=== PATIENT | female | born 1960 | race Caucasian/White ===

== ENCOUNTER 2022-04-14 11:53 | Emergency (ER) | payer OTHER ==
--- OUTSIDE RECORDS SUMMARY | 2022-04-14 12:02 | XMS REPORT | Continuity of Care Document ---
:1960 Author Organization [facility] t Address [address] [place] [place] [address] Care Team Providers Name Role Phone Brandi Richards Primary Care Physician [phone] RADIOLOGY Attending Clinician Unavailable Payers Payer Name Policy Type Policy Number Effective Date Expiration Date Susu GARG O [id number] 2011 00:00:00 Problems This patient has no known problems. Allergies, Adverse Reactions, Alerts Allergy Allergy Status Severity Reaction(s) Onset Inactive Treating Comm ents Source Name Type Date Date Clinician Codeine Propensi Active 2021-06 Phosphat ty to 0-06 e adverse 00:00: reaction 00 to drug phetenol Propensi Active (Not ty to 3-16 Checked) adverse 00:00: reaction 00 to drug SHELLFIS DRUG Active High Anaphylaxis Uni vers H INGREDI 8-17 ity of DERIVED 00:00: [place] [facility] Sulfa Propensi Active (Sulfona ty to 1-30 mide adverse 00:00: Antibiot reaction 00 ics) to drug CODEINE DRUG Active Unknown-Cmnt 2014-06 Uni vers INGREDI 0-14 ity of 00:00: [place] [facility] PENICILL Drug Active Unknown-Cmnt 2014-06 Un petty INS Class 0-14 ity of 00:00: [place] [facility] SULFA Drug Active Unknown-Cmnt 2014-06 Univ ers (SULFONA Class 0-14 ity of MIDE 00:00: [place] ANTIBIOT 00 [facility] ICS) [facility] Medications Ordered Filled Start Stop Current Ordering Indication Dosage Frequency Signature Comments Components Source Medication Medication Date Date Medication? Clinician (SIG) Name Name Prozac 10 No 1mg mg capsule 12-23 00:00: 00 Prozac 10 2022-0 No 1mg mg capsule 7-21 00:00: 00 Prozac 10 2022-0 No 1mg mg capsule 7-21 00:00: 00 Dose 2022-0 No Unknown 3-19 00:00: 00 Dose 2022-0 No Unknown 3-19 00:00: 00 Dose 2022-0 No Unknown 3-19 00:00: 00 gemfibrozil 2022-0 No 1mg 600 mg 3-17 tablet 00:00: 00 Dose 2022-0 No Unknown 3-17 00:00: 00 gemfibrozil 2022-0 No 1mg 600 mg 3-17 tablet 00:00: 00 Dose 2022-0 No Unknown 3-17 00:00: 00 gemfibrozil 2022-0 No 1mg 600 mg 3-17 tablet 00:00: 00 Dose 2022-0 No Unknown 3-17 00:00: 00 Prozac 10 2022-0 No 1mg mg capsule 3-16 00:00: 00 Dose 2022-0 No Unknown 3-16 00:00: 00 Dose 2022-0 No Unknown 3-16 00:00: 00 Prozac 10 2022-0 No 1mg mg capsule 3-16 00:00: 00 Dose 2022-0 No Unknown 3-16 00:00: 00 Dose 2022-0 No Unknown 3-16 00:00: 00 Dose 2022-0 No Unknown 3-16 00:00: 00 Dose 2022-0 No Unknown 3-16 00:00: 00 Dose 2022-0 No Unknown 3-16 00:00: 00 Dose 2022-0 No Unknown 3-16 00:00: 00 Dose 2022-0 No Unknown 3-16 00:00: 00 Dose 2022-0 No Unknown 3-16 00:00: 00 Dose 2022-0 No Unknown 3-16 00:00: 00 Dose 2022-0 No Unknown 3-16 00:00: 00 Dose 2022-0 No Unknown 3-16 00:00: 00 Dose 2022-0 No Unknown 3-16 00:00: 00 Dose 2022-0 No Unknown 3-16 00:00: 00 Dose 2022-0 No Unknown 3-16 00:00: 00 Dose 2022-0 No Unknown 3-16 00:00: 00 Dose 2022-0 No Unknown 3-16 00:00: 00 Dose 2022-0 No Unknown 3-16 00:00: 00 Dose 2022-0 No Unknown 3-16 00:00: 00 Dose 2022-0 No Unknown 3-16 00:00: 00 Dose 2022-0 No Unknown 3-16 00:00: 00 Dose 2022-0 No Unknown 3-16 00:00: 00 Dose 2022-0 No Unknown 3-16 00:00: 00 Dose 2022-0 No Unknown 3-16 00:00: 00 Dose 2022-0 No Unknown 3-16 00:00: 00 Dose 2022-0 No Unknown 3-16 00:00: 00 Dose 2022-0 No Unknown 3-16 00:00: 00 Dose 2022-0 No Unknown 3-16 00:00: 00 Dose 2022-0 No Unknown 3-16 00:00: 00 Dose 2022-0 No Unknown 3-16 00:00: 00 Dose 2022-0 No Unknown 3-16 00:00: 00 Dose 2022-0 No Unknown 3-16 00:00: 00 Dose 2022-0 No Unknown 3-16 00:00: 00 Dose 2022-0 No Unknown 3-16 00:00: 00 Dose 2022-0 No Unknown 3-16 00:00: 00 Dose 2022-0 No Unknown 3-16 00:00: 00 Dose 2022-0 No Unknown 3-16 00:00: 00 Dose 2022-0 No Unknown 3-16 00:00: 00 Dose 2022-0 No Unknown 3-16 00:00: 00 Dose 2022-0 No Unknown 3-16 00:00: 00 Dose 2022-0 No Unknown 3-16 00:00: 00 Dose 2022-0 No Unknown 3-16 00:00: 00 Dose 2022-0 No Unknown 3-16 00:00: 00 Dose 2022-0 No Unknown 3-16 00:00: 00 Dose 2022-0 No Unknown 3-16 00:00: 00 Dose 2022-0 No Unknown 3-16 00:00: 00 Dose 2022-0 No Unknown 3-16 00:00: 00 Dose 2022-0 No Unknown 3-16 00:00: 00 Dose 2022-0 No Unknown 3-16 00:00: 00 Dose 2022-0 No Unknown 3-16 00:00: 00 Dose 2022-0 No Unknown 3-16 00:00: 00 Dose 2022-0 No Unknown 3-16 00:00: 00 Dose 2022-0 No Unknown 3-16 00:00: 00 Prozac 10 2022-0 No 1mg mg capsule 3-16 00:00: 00 Dose 2022-0 No Unknown 3-16 00:00: 00 Dose 2022-0 No Unknown 3-16 00:00: 00 Dose 2022-0 No Unknown 3-16 00:00: 00 Dose 2022-0 No Unknown 3-16 00:00: 00 Dose 2022-0 No Unknown 3-16 00:00: 00 Dose 2022-0 No Unknown 3-16 00:00: 00 Dose 2022-0 No Unknown 3-16 00:00: 00 Dose 2022-0 No Unknown 3-16 00:00: 00 Dose 2022-0 No Unknown 3-16 00:00: 00 Dose 2022-0 No Unknown 3-16 00:00: 00 Dose 2022-0 No Unknown 3-16 00:00: 00 Dose 2022-0 No Unknown 3-16 00:00: 00 Dose 2022-0 No Unknown 3-16 00:00: 00 Dose 2022-0 No Unknown 3-16 00:00: 00 Dose 2022-0 No Unknown 3-16 00:00: 00 Dose 2022-0 No Unknown 3-16 00:00: 00 Dose 2022-0 No Unknown 3-16 00:00: 00 Dose 2022-0 No Unknown 3-16 00:00: 00 Dose 2022-0 No Unknown 3-16 00:00: 00 Dose 2022-0 No Unknown 3-16 00:00: 00 Dose 2022-0 No Unknown 3-16 00:00: 00 Dose 2022-0 No Unknown 3-16 00:00: 00 Dose 2022-0 No Unknown 3-16 00:00: 00 Dose 2022-0 No Unknown 3-16 00:00: 00 Dose 2022-0 No Unknown 3-16 00:00: 00 Dose 2022-0 No Unknown 3-16 00:00: 00 Dose 2022-0 No Unknown 3-16 00:00: 00 Dose 2022-0 No Unknown 3-16 00:00: 00 Dose 2022-0 No Unknown 3-16 00:00: 00 Dose 2022-0 No Unknown 3-16 00:00: 00 Dose 2022-0 No Unknown 3-16 00:00: 00 Dose 2022-0 No Unknown 3-16 00:00: 00 Dose 2022-0 No Unknown 3-16 00:00: 00 Dose 2022-0 No Unknown 3-16 00:00: 00 Dose 2022-0 No Unknown 3-16 00:00: 00 Dose 2022-0 No Unknown 3-16 00:00: 00 Dose 2022-0 No Unknown 3-16 00:00: 00 Dose 2022-0 No Unknown 3-16 00:00: 00 Dose 2022-0 No Unknown 3-16 00:00: 00 Dose 2022-0 No Unknown 3-16 00:00: 00 Dose 2022-0 No Unknown 3-16 00:00: 00 Dose 2022-0 No Unknown 3-16 00:00: 00 Dose 2022-0 No Unknown 3-16 00:00: 00 Dose 2022-0 No Unknown 3-16 00:00: 00 Dose 2022-0 No Unknown 3-16 00:00: 00 Dose 2022-0 No Unknown 3-16 00:00: 00 Dose 2022-0 No Unknown 3-16 00:00: 00 Dose 2022-0 No Unknown 3-16 00:00: 00 Dose 2022-0 No Unknown 3-16 00:00: 00 Dose 2022-0 No Unknown 3-16 00:00: 00 Dose 2022-0 No Unknown 3-16 00:00: 00 Dose 2022-0 No Unknown 3-16 00:00: 00 Dose 2022-0 No Unknown 3-16 00:00: 00 Dose 2022-0 No Unknown 3-16 00:00: 00 azithromyci 2021-1 No 1mg n 250 mg 1-15 tablet 00:00: 00 benzonatate 2021-1 No 1mg 200 mg 1-15 capsule 00:00: 00 azithromyci 2021-1 No 1mg n 250 mg 1-15 tablet 00:00: 00 benzonatate 2021-1 No 1mg 200 mg 1-15 capsule 00:00: 00 azithromyci 2021-1 No 1mg n 250 mg 1-15 tablet 00:00: 00 benzonatate 2021-1 No 1mg 200 mg 1-15 capsule 00:00: 00 Bromfed DM 2020-1 No 10mg/5 2 mg-30 1-11 mL mg-10 mg/5 00:00: mL oral 00 syrup Bromfed DM 2020-1 No 10mg/5 2 mg-30 1-11 mL mg-10 mg/5 00:00: mL oral 00 syrup Bromfed DM 2020-1 No 10mg/5 2 mg-30 1-11 mL mg-10 mg/5 00:00: mL oral 00 syrup ofloxacin 2020-0 No 12% 0.3 % eye 8-17 drops 00:00: 00 polymyxin B 2020-0 No 11 sulfate 8-17 mg/mL 10,000 00:00: unit-trimet 00 hoprim 1 mg/mL eye drops ofloxacin 2020-0 No 12% 0.3 % eye 8-17 drops 00:00: 00 polymyxin B 1-0 No 11 sulfate 8-17 mg/mL 10,000 00:00: unit-trimet 00 hoprim 1 mg/mL eye drops ofloxacin 2020-0 No 12% 0.3 % eye 8-17 drops 00:00: 00 polymyxin B 1-0 No 11 sulfate 8-17 mg/mL 10,000 00:00: unit-trimet 00 hoprim 1 mg/mL eye drops Dose 2020-0 No Unknown 7-30 00:00: 00 Dose 1-0 No Unknown 7-30 00:00: 00 Dose 1-0 No Unknown 7-30 00:00: 00 Plavix 75 1-0 No 1mg mg tablet 6-21 00:00: 00 Dose 1-0 No Unknown 6-21 00:00: 00 Dose 1-0 No Unknown 6-21 00:00: 00 allopurinol 1-0 No 1mg 100 mg 4-20 tablet 00:00: 00 naproxen 1-0 No 1mg 250 mg 4-20 tablet 00:00: 00 Dose 1-0 No Unknown 4-20 00:00: 00 naproxen 1-0 No 1mg 250 mg 4-20 tablet 00:00: 00 Dose 1-0 No Unknown 4-20 00:00: 00 naproxen 1-0 No 1mg 250 mg 4-20 tablet 00:00: 00 lidocaine 4 2021-0 No 1% % topical 4-15 gel 00:00: 00 acyclovir 2021-0 No 1mg 800 mg 4-15 tablet 00:00: 00 lidocaine 4 2021-0 No 1% % topical 4-15 gel 00:00: 00 acyclovir 2021-0 No 1mg 800 mg 4-15 tablet 00:00: 00 lidocaine 4 1-0 No 1% % topical 4-15 gel 00:00: 00 acyclovir 2021-0 No 1mg 800 mg 4-15 tablet 00:00: 00 gemfibrozil 2021-0 No 1mg 600 mg 4-14 tablet 00:00: 00 gemfibrozil 2021-0 No 1mg 600 mg 4-14 tablet 00:00: 00 gemfibrozil 2021-0 No 1mg 600 mg 4-14 tablet 00:00: 00 loratadine 2020-0 No 1mg 10 mg 6-22 tablet 00:00: 00 loratadine 2020-0 No 1mg 10 mg 6-22 tablet 00:00: 00 loratadine 2020-0 No 1mg 10 mg 6-22 tablet 00:00: 00 Medrol 2016-0 No 1mg (Noel) 4 mg 1-30 tablets in 00:00: a dose pack 00 Medrol 2016-0 No 1mg (Noel) 4 mg 1-30 tablets in 00:00: a dose pack 00 Medrol 2016-0 No 1mg (Noel) 4 mg 1-30 tablets in 00:00: a dose pack 00 Immunizations Ordered Immunization Filled Immunization Date Status Commen ts Source Name Name zoster 2022-04-08 Completed 00:00:00 Moderna COVID-19 2021-05-14 Completed Vaccine 00:00:00 Moderna COVID-19 2021-05-14 Completed Vaccine 00:00:00 Moderna COVID-19 2021-05-14 Completed Vaccine 00:00:00 Moderna COVID-19 2020-06-27 Completed Vaccine 00:00:00 Moderna COVID-19 2020-06-27 Completed Vaccine 00:00:00 Moderna COVID-19 2020-06-27 Completed Vaccine 00:00:00 Moderna COVID-19 2020-06-01 Completed Vaccine 00:00:00 Moderna COVID-19 2020-06-01 Completed Vaccine 00:00:00 Moderna COVID-19 2020-06-01 Completed Vaccine 00:00:00 Vital Signs Vital Name Observation Time Observation Value Comments Source BP Systolic 2022-04-08 09:26:00 154 mm[Hg] BP Diastolic 2022-04-08 09:26:00 82 mm[Hg] Weight Measured 2022-04-08 09:26:00 164.20 pounds Height Measured 2022-04-08 09:26:00 68.00 inches Body Temperature 2022-04-08 09:26:00 98.20 degrees Heart Rate 2022-04-08 09:26:00 78.00 /min Respiratory Rate 2022-04-08 09:26:00 BP Systolic 2022-03-10 08:24:00 171 mm[Hg] BP Diastolic 2022-03-10 08:24:00 78 mm[Hg] Weight Measured 2022-03-10 08:24:00 163.40 pounds Height Measured 2022-03-10 08:24:00 68.00 inches Body Temperature 2022-03-10 08:24:00 97.60 degrees Heart Rate 2022-03-10 08:24:00 89.00 /min Respiratory Rate 2022-03-10 08:24:00 BP Systolic 2022-03-10 08:08:00 171 mm[Hg] BP Diastolic 2022-03-10 08:08:00 78 mm[Hg] Weight Measured 2022-03-10 08:08:00 163.40 pounds Height Measured 2022-03-10 08:08:00 68.00 inches Body Temperature 2022-03-10 08:08:00 97.60 degrees Heart Rate 2022-03-10 08:08:00 89.00 /min Respiratory Rate 2022-03-10 08:08:00 BP Systolic 2022-01-28 11:13:00 153 mm[Hg] BP Diastolic 2022-01-28 11:13:00 67 mm[Hg] Weight Measured 2022-01-28 11:13:00 165.40 pounds Height Measured 2022-01-28 11:13:00 68.00 inches Body Temperature 2022-01-28 11:13:00 98.10 degrees Heart Rate 2022-01-28 11:13:00 87.00 /min Respiratory Rate 2022-01-28 11:13:00 16.00 /min BP Systolic 2021-08-18 09:49:00 118 mm[Hg] BP Diastolic 2021-08-18 09:49:00 70 mm[Hg] Weight Measured 2021-08-18 09:49:00 177.60 pounds Height Measured 2021-08-18 09:49:00 68.00 inches Body Temperature 2021-08-18 09:49:00 97.30 degrees Heart Rate 2021-08-18 09:49:00 84.00 /min Respiratory Rate 2021-08-18 09:49:00 BP Systolic 2021-01-01 08:12:00 123 mm[Hg] BP Diastolic 2021-01-01 08:12:00 66 mm[Hg] Weight Measured 2021-01-01 08:12:00 165.00 pounds Height Measured 2021-01-01 08:12:00 68.00 inches Body Temperature 2021-01-01 08:12:00 97.80 degrees Heart Rate 2021-01-01 08:12:00 78.00 /min Respiratory Rate 2021-01-01 08:12:00 16.00 /min BP Systolic 2020-12-04 14:26:00 142 mm[Hg] BP Diastolic 2020-12-04 14:26:00 74 mm[Hg] Weight Measured 2020-12-04 14:26:00 167.60 pounds Height Measured 2020-12-04 14:26:00 68.00 inches Body Temperature 2020-12-04 14:26:00 98.50 degrees Heart Rate 2020-12-04 14:26:00 82.00 /min Respiratory Rate 2020-12-04 14:26:00 BP Systolic 2020-11-23 16:34:00 159 mm[Hg] BP Diastolic 2020-11-23 16:34:00 76 mm[Hg] Weight Measured 2020-11-23 16:34:00 168.40 pounds Height Measured 2020-11-23 16:34:00 68.00 inches Body Temperature 2020-11-23 16:34:00 98.20 degrees Heart Rate 2020-11-23 16:34:00 86.00 /min Respiratory Rate 2020-11-23 16:34:00 BP Systolic 2020-09-17 09:30:00 138 mm[Hg] BP Diastolic 2020-09-17 09:30:00 80 mm[Hg] Weight Measured 2020-09-17 09:30:00 172.20 pounds Height Measured 2020-09-17 09:30:00 68.00 inches Body Temperature 2020-09-17 09:30:00 97.60 degrees Heart Rate 2020-09-17 09:30:00 89.00 /min Respiratory Rate 2020-09-17 09:30:00 16.00 /min BP Systolic 2020-09-11 09:14:00 161 mm[Hg] BP Diastolic 2020-09-11 09:14:00 77 mm[Hg] Weight Measured 2020-09-11 09:14:00 168.00 pounds Height Measured 2020-09-11 09:14:00 68.00 inches Body Temperature 2020-09-11 09:14:00 98.70 degrees Heart Rate 2020-09-11 09:14:00 83.00 /min Respiratory Rate 2020-09-11 09:14:00 16.00 /min BP Systolic 2019-06-21 09:58:00 171 mm[Hg] BP Diastolic 2019-06-21 09:58:00 79 mm[Hg] Weight Measured 2019-06-21 09:58:00 170.00 pounds Height Measured 2019-06-21 09:58:00 68.00 inches Body Temperature 2019-06-21 09:58:00 97.90 degrees Heart Rate 2019-06-21 09:58:00 76.00 /min Respiratory Rate 2019-06-21 09:58:00 BP Systolic 2015-07-04 12:05:00 140 mm[Hg] BP Diastolic 2015-07-04 12:05:00 72 mm[Hg] Weight Measured 2015-07-04 12:05:00 179.00 pounds Height Measured 2015-07-04 12:05:00 Body Temperature 2015-07-04 12:05:00 97.90 degrees Heart Rate 2015-07-04 12:05:00 106.00 /min Respiratory Rate 2015-07-04 12:05:00 15.00 /min BP Systolic 2015-07-04 12:00:00 140 mm[Hg] BP Diastolic 2015-07-04 12:00:00 72 mm[Hg] Weight Measured 2015-07-04 12:00:00 179.00 pounds Height Measured 2015-07-04 12:00:00 Body Temperature 2015-07-04 12:00:00 97.90 degrees Heart Rate 2015-07-04 12:00:00 106.00 /min Respiratory Rate 2015-07-04 12:00:00 15.00 /min Procedures This patient has no known procedures. Plan of Care Planned Activity Planned Date Details Comments Source Goal Plan of Care Note [code = 69331-8] Goal Plan of Care Note [code = 76843-9] Goal Plan of Care Note [code = 23410-5] Goal Plan of Care Note [code = 76450-0] Goal Plan of Care Note [code = 04273-1] Goal Plan of Care Note [code = 35172-1] Goal Plan of Care Note [code = 70179-9] Goal Plan of Care Note [code = 08428-7] Goal Plan of Care Note [code = 32511-6] Goal Plan of Care Note [code = 31819-6] Goal Plan of Care Note [code = 71781-3] Goal Plan of Care Note [code = 67464-9] Goal Plan of Care Note [code = 07939-3] Goal Plan of Care Note [code = 54468-2] Goal Plan of Care Note [code = 66218-7] Goal Plan of Care Note [code = 32505-5] Goal Plan of Care Note [code = 09352-9] Goal Plan of Care Note [code = 96073-5] Goal Plan of Care Note [code = 16199-0] Goal Plan of Care Note [code = 70472-7] Goal Plan of Care Note [code = 98434-9] Goal Plan of Care Note [code = 84722-3] Goal Plan of Care Note [code = 09773-0] Goal Plan of Care Note [code = 38646-7] Goal Plan of Care Note [code = 12326-4] Goal Plan of Care Note [code = 42146-3] Goal Plan of Care Note [code = 99698-6] Goal Plan of Care Note [code = 57469-0] Goal Plan of Care Note [code = 65822-8] Goal Plan of Care Note [code = 94429-9] Goal Plan of Care Note [code = 93419-2] Goal Plan of Care Note [code = 92545-7] Goal Plan of Care Note [code = 28475-9] Goal Plan of Care Note [code = 46437-9] Goal Plan of Care Note [code = 62774-4] Goal Plan of Care Note [code = 07512-3] Goal Plan of Care Note [code = 64510-9] Goal Plan of Care Note [code = 03387-6] Goal Plan of Care Note [code = 57176-9] Goal Plan of Care Note [code = 83921-9] Goal Plan of Care Note [code = 18976-4] Goal Plan of Care Note [code = 35838-9] Goal Plan of Care Note [code = 04523-4] Goal Plan of Care Note [code = 84266-7] Goal Plan of Care Note [code = 43231-4] Goal Plan of Care Note [code = 76258-9] Goal Plan of Care Note [code = 06142-0] Goal Plan of Care Note [code = 63355-8] Goal Plan of Care Note [code = 81667-3] Goal Plan of Care Note [code = 19814-4] Goal Plan of Care Note [code = 93252-0] Goal Plan of Care Note [code = 38686-9] Goal Plan of Care Note [code = 23916-6] Goal Plan of Care Note [code = 25825-5] Goal Plan of Care Note [code = 22315-9] Goal Plan of Care Note [code = 17373-5] Goal Plan of Care Note [code = 73812-4] Goal Plan of Care Note [code = 36877-6] Goal Plan of Care Note [code = 45985-2] Goal Plan of Care Note [code = 56259-5] Goal Plan of Care Note [code = 04009-9] Goal Plan of Care Note [code = 06907-6] Goal Plan of Care Note [code = 81372-1] Goal Plan of Care Note [code = 81286-7] Goal Plan of Care Note [code = 54655-6] Goal Plan of Care Note [code = 08433-1] Goal Plan of Care Note [code = 83134-2] Goal Plan of Care Note [code = 91061-1] Goal Plan of Care Note [code = 26914-5] Goal Plan of Care Note [code = 39627-3] Goal Plan of Care Note [code = 08476-6] Goal Plan of Care Note [code = 19947-1] Goal Plan of Care Note [code = 97375-2] Goal Plan of Care Note [code = 80289-9] Goal Plan of Care Note [code = 82956-0] Goal Plan of Care Note [code = 50450-4] Goal Plan of Care Note [code = 36522-6] Goal Plan of Care Note [code = 46624-6] Goal Plan of Care Note [code = 71745-0] Goal Plan of Care Note [code = 55006-8] Goal Plan of Care Note [code = 08699-8] Goal Plan of Care Note [code = 69538-6] Goal Plan of Care Note [code = 29205-1] Goal Plan of Care Note [code = 87501-2] Goal Plan of Care Note [code = 18186-5] Goal Plan of Care Note [code = 39289-7] Goal Plan of Care Note [code = 54049-8] Encounters Start End Encounter Admission Attending Care Care Encounter Source Date/Time Date/Time Type Type Clinicians Facility Department ID 2022-04-14 2022-04-14 Outpatient [facility] [id number] [facility] 10:07:39 10:07:39 1110 [facility] 2022-04-08 2022-04-08 Outpatient LOLA DAVILA [id number] [facility] 09:21:07 09:21:07 1104 F [facility] 2022-04-08 2022-04-08 Outpatient [id number] 00:00:00 00:00:00 Visit [id number]-1 -92bf-c35 [id number] 2022-03-10 2022-03-10 Outpatient [facility] [id number] [facility] 08:04:04 08:04:04 1006 F [facility] 2022-03-10 2022-03-10 Outpatient [id number] 00:00:00 00:00:00 Visit [id number]-[id number]-[id number] -8868-fc0 [id number] 2022-01-28 2022-01-28 Outpatient [id number] 00:00:00 00:00:00 Visit to46-4ma3 [id number] -5eu4-tpj cb6-aedcb5 [id number] 2020-09-17 2020-09-17 Outpatient R RADIOLOGY [facility] [id number]-20 [facility] 11:00:00 11:00:00 [id number] [facility] 2020-09-17 2020-09-17 Outpatient R RADIOLOGY [facility] [id number] [facility] 00:00:00 00:00:00 [facility] Results Test Description Test Time Test Comments Results Result Comments Source LIPID PANEL 2022-03-11 07:24:20 Test Item Value Reference Range Interpretation Comme nts CHOLESTEROL (test code = 2210) 263 MG/DL <200 H TRIGLYCERIDES (test code = 2232) 200 MG/DL <150 H HDL CHOLESTEROL (test code = 67 MG/DL >39 2219) CALC LDL CHOL (test code = 2237) 160 MG/DL <100 H NOTE: CALCULATED LDL IS BASED ON AMALIA-SALCIDO METHOD WHICHINCLUDES A DJUSTABLE TRIGLYCERIDE:VL DL CHOLESTEROL RATIO.THIS FACT OR VARIES BY MEASURED TRIGLY CERIDE AND NON-HDLCHOLESTE ROL CONCENTRATIONS WITH INCREASED CALCULATED LDL SEENIN HIGHER T RIGLYCERIDE OR LOWER NON-HDL S PECIMENS. FOR MOREINFORMATION , SEE CLIENT ANNOUNCEMENT AT [email or web address] RATIO LDL/HDL (test code = 2.39 RATIO <3.22 2237) COMPREHENSIVE METABOLIC [id number] 07:24:20 Test Item Value Reference Range Interpretation Comments GLUCOSE (test code = 127 MG/DL 70-99 H 2216) BUN (test code = 5 MG/DL 8-23 L 2207) CREATININE (test 0.58 MG/DL 0.60-1.30 L code = 2214) eGFR (2020 CKD-EPI) 101 >60 (test code = 62144) ML/MIN/1.73 CALC BUN/CREAT (test 9 RATIO 6-28 code = 223) SODIUM (test code = 146 MEQ/L 153-862 4910) POTASSIUM (test code 4.5 MEQ/L 3.5-5.4 = 2227) CHLORIDE (test code 107 MEQ/L 95-107 = 2214) CARBON DIOXIDE (test 27 MEQ/L 19-31 code = 220) CALCIUM (test code = 9.5 MG/DL 8.5-10.5 2208) PROTEIN, TOTAL (test 7.0 G/DL 6.1-8.3 code = 2228) ALBUMIN (test code = 4.6 G/DL 3.5-5.2 2200) CALC GLOBULIN (test 2.4 G/DL 1.9-3.7 code = 2239) CALC A/G RATIO (test 1.9 RATIO 1.0-2.6 code = 2233) BILIRUBIN, TOTAL 0.3 MG/DL See_Comment [Automated message] (test code = 2206) The [employer] which generated this result transmit patrick reference range : <=1.2. The refe rence range was not u sed to interpret th is result as normal/abnormal . ALKALINE PHOSPHATASE 87 U/L 40-140 (test code = 2203) AST (test code = 30 U/L 9-40 2217) ALT (test code = 39 U/L 5-40 2218) HEMOGLOBIN [id number] 04:10:16 Test Item Value Reference Range Interpretation Comments HEMOGLOBIN A1c (test code = 84682) 5.9 % 4.2-5.6 H VITAMIN D, 25 [id number] 04:00:07 Test Item Value Reference Range Interpretation Comments VITAMIN D, 25 OH 48 NG/ML SEE BELOW NOTE: 25-H YDROXYVITAMIN D (test code = 4958) ASSAY INC LUDES 25-HYDROXYVITAM IN D2 AND D3. METHODOLOGY IS CHEMILUMINESCEN T IMMUNOASSAY. INTERPRETIVE RA NGES PEDIATRIC (<17 YEARS) . . . . . . . . . . . NG/ML 20-100ADULT: IN SUFFICIENT . . . . . . . . . . . . . . NG/ML <20 SUBOP TIMAL . . . . . . . . . . . . . . . NG/ML 20-29 OPT IMAL . . . . . . . . . . . . . . . . . NG/ML 30-100 CBC W/AUTO DIFF WITH [id number] 03:16:40 Test Item Value Reference Range Interpretation Comments WBC (test code = 7.6 K/UL 3.5-11.0 1001) RBC (test code = 4.13 M/UL 3.80-5.40 1002) HEMOGLOBIN (test 13.6 G/DL 11.5-15.5 code = 1003) HEMATOCRIT (test 39.3 % 34.0-45.0 code = 1004) MCV (test code = 95.2 fL 80.0-99.0 1005) MCH (test code = 32.9 PG 25.0-33.0 1006) MCHC (test code = 34.6 G/DL 31.0-36.0 1007) RDW (test code = 13.1 % 11.5-15.0 1038) NEUTROPHILS (test 53.9 % code = 1008) LYMPHOCYTES (test 34.7 % code = 1010) MONOCYTES (test code 8.3 % = 1011) EOSINOPHILS (test 1.7 % code = 1012) BASOPHILS (test code 0.7 % = 1013) IMMATURE 0.7 % GRANULOCYTES (test code = 1036) NUCLEATED RBCS (test 0.0 /100 See_Comment [Autom ated message] code = 1065) WBC'S The system [employer] generated this result transmitted ref erence range: 0.0. The reference range was not used to int erpret this result as normal/abnormal . PLATELET COUNT (test 250 K/UL 130-400 code = 1015) ABSOLUTE NEUTROPHILS 4.08 K/UL 1.50-7.50 (test code = 1066) ABSOLUTE LYMPHOCYTES 2.62 K/UL 1.00-4.00 (test code = 1067) ABSOLUTE MONOCYTES 0.63 K/UL 0.20-1.00 (test code = 1068) ABSOLUTE EOSINOPHILS 0.13 K/UL 0.00-0.50 (test code = 1040) ABSOLUTE BASOPHILS 0.05 K/UL 0.00-0.20 (test code = 1069) ABS IMMATURE 0.05 K/UL 0.00-0.10 GRANULOCYTES (test code = 1020) ABS NUCLEATED RBCS 0.00 K/UL 0.00-0.11 UNLESS O THERWISE (test code = 83494) INDICATE D, ALL TESTING PERFORM ED [facility], [facility]. [address] [place] [address] [facility] [place] DIRECTOR: GODFREY ORTIZ M.D. CLIA NUMBER [id number] CAP ACCREDITATION N O. [id number] VITAMIN D, 25 OH [ADDED]2022-03-11 00:00:00 Test Item Value Reference Range Interpretation Comments VITAMIN D, 25 OH (test code = 4958) 48 NG/ML VITAMIN D, 25 OH [ADDED]2022-03-11 00:00:00 Test Item Value Reference Range Interpretation Comments VITAMIN D, 25 OH (test code = 4958) 48 NG/ML LIPID PANEL [ADDED]2022-03-11 00:00:00 Test Item Value Reference Range Interpretation Comments CHOLESTEROL (test code = 2210) 263 MG/DL TRIGLYCERIDES (test code = 2232) 200 MG/DL HDL CHOLESTEROL (test code = 2220) 67 MG/DL CALC LDL CHOL (test code = 2237) 160 MG/DL RISK RATIO LDL/HDL (test code = 2.39 RATIO 2238) LIPID PANEL [ADDED]2022-03-11 00:00:00 Test Item Value Reference Range Interpretation Comments CHOLESTEROL (test code = 2210) 263 MG/DL TRIGLYCERIDES (test code = 2232) 200 MG/DL HDL CHOLESTEROL (test code = 2220) 67 MG/DL CALC LDL CHOL (test code = 2237) 160 MG/DL RISK RATIO LDL/HDL (test code = 2.39 RATIO 2238) HEMOGLOBIN A1c [ADDED]2022-03-11 00:00:00 Test Item Value Reference Range Interpretation Comments HEMOGLOBIN A1c (test code = 38983) 5.9 % HEMOGLOBIN A1c [ADDED]2022-03-11 00:00:00 Test Item Value Reference Range Interpretation Comments HEMOGLOBIN A1c (test code = 04684) 5.9 % HEMOGLOBIN A1c [ADDED]2022-03-11 00:00:00 Test Item Value Reference Range Interpretation Comments HEMOGLOBIN A1c (test code = 43396) 5.9 % COMPREHENSIVE METABOLIC PANEL [ADDED]2022-03-11 00:00:00 Test Item Value Reference Range Interpretation Comments GLUCOSE (test code = 2217) 127 MG/DL BUN (test code = 2208) 5 MG/DL CREATININE (test code = 2214) 0.58 MG/DL eGFR (2020 CKD-EPI) (test 101 ML/MIN/1.73 code = 36921) CALC BUN/CREAT (test code = 9 RATIO 2235) SODIUM (test code = 2231) 146 MEQ/L POTASSIUM (test code = 2228) 4.5 MEQ/L CHLORIDE (test code = 2215) 107 MEQ/L CARBON DIOXIDE (test code = 27 MEQ/L 2205) CALCIUM (test code = 2209) 9.5 MG/DL PROTEIN, TOTAL (test code = 7.0 G/DL 2228) ALBUMIN (test code = 220) 4.6 G/DL CALC GLOBULIN (test code = 2.4 G/DL 0) CALC A/G RATIO (test code = 1.9 RATIO 2234) BILIRUBIN, TOTAL (test code = 0.3 MG/DL 2206) ALKALINE PHOSPHATASE (test 87 U/L code = 2204) AST (test code = 2218) 30 U/L ALT (test code = 2219) 39 U/L COMPREHENSIVE METABOLIC PANEL [ADDED]2022-03-11 00:00:00 Test Item Value Reference Range Interpretation Comments GLUCOSE (test code = 2217) 127 MG/DL BUN (test code = 2208) 5 MG/DL CREATININE (test code = 2214) 0.58 MG/DL eGFR (2020 CKD-EPI) (test 101 ML/MIN/1.73 code = 61302) CALC BUN/CREAT (test code = 9 RATIO 2235) SODIUM (test code = 2231) 146 MEQ/L POTASSIUM (test code = 2228) 4.5 MEQ/L CHLORIDE (test code = 2215) 107 MEQ/L CARBON DIOXIDE (test code = 27 MEQ/L 2205) CALCIUM (test code = 2209) 9.5 MG/DL PROTEIN, TOTAL (test code = 7.0 G/DL 2228) ALBUMIN (test code = 2201) 4.6 G/DL CALC GLOBULIN (test code = 2.4 G/DL 2240) CALC A/G RATIO (test code = 1.9 RATIO 2234) BILIRUBIN, TOTAL (test code = 0.3 MG/DL 2206) ALKALINE PHOSPHATASE (test 87 U/L code = 2204) AST (test code = 2218) 30 U/L ALT (test code = 2219) 39 U/L CBC W/AUTO DIFF WITH PLATELETS [ADDED]2022-03-11 00:00:00 Test Item Value Reference Range Interpretation Comments WBC (test code = 1001) 7.6 K/UL RBC (test code = 1002) 4.13 M/UL HEMOGLOBIN (test code = 1003) 13.6 G/DL HEMATOCRIT (test code = 1004) 39.3 % MCV (test code = 1005) 95.2 fL MCH (test code = 1006) 32.9 PG MCHC (test code = 1007) 34.6 G/DL RDW (test code = 1038) 13.1 % NEUTROPHILS (test code = 1008) 53.9 % LYMPHOCYTES (test code = 1010) 34.7 % MONOCYTES (test code = 1011) 8.3 % EOSINOPHILS (test code = 1012) 1.7 % BASOPHILS (test code = 1013) 0.7 % IMMATURE GRANULOCYTES (test 0.7 % code = 1036) NUCLEATED RBCS (test code = 0.0 /100WBC'S 1065) PLATELET COUNT (test code = 250 K/UL 1015) ABSOLUTE NEUTROPHILS (test code 4.08 K/UL = 1066) ABSOLUTE LYMPHOCYTES (test code 2.62 K/UL = 1067) ABSOLUTE MONOCYTES (test code = 0.63 K/UL 1068) ABSOLUTE EOSINOPHILS (test code 0.13 K/UL = 1040) ABSOLUTE BASOPHILS (test code = 0.05 K/UL 1069) ABS IMMATURE GRANULOCYTES (test 0.05 K/UL code = 1020) ABS NUCLEATED RBCS (test code = 0.00 K/UL 28358) CBC W/AUTO DIFF WITH PLATELETS [ADDED]2022-03-11 00:00:00 Test Item Value Reference Range Interpretation Comments WBC (test code = 1001) 7.6 K/UL RBC (test code = 1002) 4.13 M/UL HEMOGLOBIN (test code = 1003) 13.6 G/DL HEMATOCRIT (test code = 1004) 39.3 % MCV (test code = 1005) 95.2 fL MCH (test code = 1006) 32.9 PG MCHC (test code = 1007) 34.6 G/DL RDW (test code = 1038) 13.1 % NEUTROPHILS (test code = 1008) 53.9 % LYMPHOCYTES (test code = 1010) 34.7 % MONOCYTES (test code = 1011) 8.3 % EOSINOPHILS (test code = 1012) 1.7 % BASOPHILS (test code = 1013) 0.7 % IMMATURE GRANULOCYTES (test 0.7 % code = 1036) NUCLEATED RBCS (test code = 0.0 /100WBC'S 1065) PLATELET COUNT (test code = 250 K/UL 1015) ABSOLUTE NEUTROPHILS (test code 4.08 K/UL = 1066) ABSOLUTE LYMPHOCYTES (test code 2.62 K/UL = 1067) ABSOLUTE MONOCYTES (test code = 0.63 K/UL 1068) ABSOLUTE EOSINOPHILS (test code 0.13 K/UL = 1040) ABSOLUTE BASOPHILS (test code = 0.05 K/UL 1069) ABS IMMATURE GRANULOCYTES (test 0.05 K/UL code = 1020) ABS NUCLEATED RBCS (test code = 0.00 K/UL 88220) CBC W/AUTO DIFF WITH PLATELETS [ADDED]2022-03-11 00:00:00 Test Item Value Reference Range Interpretation Comments WBC (test code = 1001) 7.6 K/UL RBC (test code = 1002) 4.13 M/UL HEMOGLOBIN (test code = 1003) 13.6 G/DL HEMATOCRIT (test code = 1004) 39.3 % MCV (test code = 1005) 95.2 fL MCH (test code = 1006) 32.9 PG MCHC (test code = 1007) 34.6 G/DL RDW (test code = 1038) 13.1 % NEUTROPHILS (test code = 1008) 53.9 % LYMPHOCYTES (test code = 1010) 34.7 % MONOCYTES (test code = 1011) 8.3 % EOSINOPHILS (test code = 1012) 1.7 % BASOPHILS (test code = 1013) 0.7 % IMMATURE GRANULOCYTES (test 0.7 % code = 1036) NUCLEATED RBCS (test code = 0.0 /100WBC'S 1065) PLATELET COUNT (test code = 250 K/UL 1015) ABSOLUTE NEUTROPHILS (test code 4.08 K/UL = 1066) ABSOLUTE LYMPHOCYTES (test code 2.62 K/UL = 1067) ABSOLUTE MONOCYTES (test code = 0.63 K/UL 1068) ABSOLUTE EOSINOPHILS (test code 0.13 K/UL = 1040) ABSOLUTE BASOPHILS (test code = 0.05 K/UL 1069) ABS IMMATURE GRANULOCYTES (test 0.05 K/UL code = 1020) ABS NUCLEATED RBCS (test code = 0.00 K/UL 60366) VITAMIN D, 25 OH [ADDED]2022-03-11 00:00:00 Test Item Value Reference Range Interpretation Comments VITAMIN D, 25 OH (test code = 4958) 48 NG/ML VITAMIN D, 25 OH [ADDED]2022-03-11 00:00:00 Test Item Value Reference Range Interpretation Comments VITAMIN D, 25 OH (test code = 4958) 48 NG/ML LIPID PANEL [ADDED]2022-03-11 00:00:00 Test Item Value Reference Range Interpretation Comments CHOLESTEROL (test code = 2210) 263 MG/DL TRIGLYCERIDES (test code = 2232) 200 MG/DL HDL CHOLESTEROL (test code = 2220) 67 MG/DL CALC LDL CHOL (test code = 2237) 160 MG/DL RISK RATIO LDL/HDL (test code = 2.39 RATIO 2238) LIPID PANEL [ADDED]2022-03-11 00:00:00 Test Item Value Reference Range Interpretation Comments CHOLESTEROL (test code = 2210) 263 MG/DL TRIGLYCERIDES (test code = 2232) 200 MG/DL HDL CHOLESTEROL (test code = 2220) 67 MG/DL CALC LDL CHOL (test code = 2237) 160 MG/DL RISK RATIO LDL/HDL (test code = 2.39 RATIO 2238) HEMOGLOBIN A1c [ADDED]2022-03-11 00:00:00 Test Item Value Reference Range Interpretation Comments HEMOGLOBIN A1c (test code = 74824) 5.9 % HEMOGLOBIN A1c [ADDED]2022-03-11 00:00:00 Test Item Value Reference Range Interpretation Comments HEMOGLOBIN A1c (test code = 10220) 5.9 % HEMOGLOBIN A1c [ADDED]2022-03-11 00:00:00 Test Item Value Reference Range Interpretation Comments HEMOGLOBIN A1c (test code = 32661) 5.9 % COMPREHENSIVE METABOLIC PANEL [ADDED]2022-03-11 00:00:00 Test Item Value Reference Range Interpretation Comments GLUCOSE (test code = 2217) 127 MG/DL BUN (test code = 2208) 5 MG/DL CREATININE (test code = 2214) 0.58 MG/DL eGFR (2020 CKD-EPI) (test 101 ML/MIN/1.73 code = 70092) CALC BUN/CREAT (test code = 9 RATIO 2235) SODIUM (test code = 2231) 146 MEQ/L POTASSIUM (test code = 2228) 4.5 MEQ/L CHLORIDE (test code = 2215) 107 MEQ/L CARBON DIOXIDE (test code = 27 MEQ/L 2206) CALCIUM (test code = 2209) 9.5 MG/DL PROTEIN, TOTAL (test code = 7.0 G/DL 222) ALBUMIN (test code = 2201) 4.6 G/DL CALC GLOBULIN (test code = 2.4 G/DL 2240) CALC A/G RATIO (test code = 1.9 RATIO 2234) BILIRUBIN, TOTAL (test code = 0.3 MG/DL 2206) ALKALINE PHOSPHATASE (test 87 U/L code = 2204) AST (test code = 2218) 30 U/L ALT (test code = 2219) 39 U/L COMPREHENSIVE METABOLIC PANEL [ADDED]2022-03-11 00:00:00 Test Item Value Reference Range Interpretation Comments GLUCOSE (test code = 2217) 127 MG/DL BUN (test code = 2208) 5 MG/DL CREATININE (test code = 2214) 0.58 MG/DL eGFR (2020 CKD-EPI) (test 101 ML/MIN/1.73 code = 15983) CALC BUN/CREAT (test code = 9 RATIO 2235) SODIUM (test code = 2231) 146 MEQ/L POTASSIUM (test code = 2228) 4.5 MEQ/L CHLORIDE (test code = 2215) 107 MEQ/L CARBON DIOXIDE (test code = 27 MEQ/L 220) CALCIUM (test code = 2209) 9.5 MG/DL PROTEIN, TOTAL (test code = 7.0 G/DL 222) ALBUMIN (test code = 2201) 4.6 G/DL CALC GLOBULIN (test code = 2.4 G/DL 2240) CALC A/G RATIO (test code = 1.9 RATIO 2234) BILIRUBIN, TOTAL (test code = 0.3 MG/DL 2206) ALKALINE PHOSPHATASE (test 87 U/L code = 2204) AST (test code = 2218) 30 U/L ALT (test code = 2219) 39 U/L CBC W/AUTO DIFF WITH PLATELETS [ADDED]2022-03-11 00:00:00 Test Item Value Reference Range Interpretation Comments WBC (test code = 1001) 7.6 K/UL RBC (test code = 1002) 4.13 M/UL HEMOGLOBIN (test code = 1003) 13.6 G/DL HEMATOCRIT (test code = 1004) 39.3 % MCV (test code = 1005) 95.2 fL MCH (test code = 1006) 32.9 PG MCHC (test code = 1007) 34.6 G/DL RDW (test code = 1038) 13.1 % NEUTROPHILS (test code = 1008) 53.9 % LYMPHOCYTES (test code = 1010) 34.7 % MONOCYTES (test code = 1011) 8.3 % EOSINOPHILS (test code = 1012) 1.7 % BASOPHILS (test code = 1013) 0.7 % IMMATURE GRANULOCYTES (test 0.7 % code = 1036) NUCLEATED RBCS (test code = 0.0 /100WBC'S 1065) PLATELET COUNT (test code = 250 K/UL 1015) ABSOLUTE NEUTROPHILS (test code 4.08 K/UL = 1066) ABSOLUTE LYMPHOCYTES (test code 2.62 K/UL = 1067) ABSOLUTE MONOCYTES (test code = 0.63 K/UL 1068) ABSOLUTE EOSINOPHILS (test code 0.13 K/UL = 1040) ABSOLUTE BASOPHILS (test code = 0.05 K/UL 1069) ABS IMMATURE GRANULOCYTES (test 0.05 K/UL code = 1020) ABS NUCLEATED RBCS (test code = 0.00 K/UL 55898) CBC W/AUTO DIFF WITH PLATELETS [ADDED]2022-03-11 00:00:00 Test Item Value Reference Range Interpretation Comments WBC (test code = 1001) 7.6 K/UL RBC (test code = 1002) 4.13 M/UL HEMOGLOBIN (test code = 1003) 13.6 G/DL HEMATOCRIT (test code = 1004) 39.3 % MCV (test code = 1005) 95.2 fL MCH (test code = 1006) 32.9 PG MCHC (test code = 1007) 34.6 G/DL RDW (test code = 1038) 13.1 % NEUTROPHILS (test code = 1008) 53.9 % LYMPHOCYTES (test code = 1010) 34.7 % MONOCYTES (test code = 1011) 8.3 % EOSINOPHILS (test code = 1012) 1.7 % BASOPHILS (test code = 1013) 0.7 % IMMATURE GRANULOCYTES (test 0.7 % code = 1036) NUCLEATED RBCS (test code = 0.0 /100WBC'S 1065) PLATELET COUNT (test code = 250 K/UL 1015) ABSOLUTE NEUTROPHILS (test code 4.08 K/UL = 1066) ABSOLUTE LYMPHOCYTES (test code 2.62 K/UL = 1067) ABSOLUTE MONOCYTES (test code = 0.63 K/UL 1068) ABSOLUTE EOSINOPHILS (test code 0.13 K/UL = 1040) ABSOLUTE BASOPHILS (test code = 0.05 K/UL 1069) ABS IMMATURE GRANULOCYTES (test 0.05 K/UL code = 1020) ABS NUCLEATED RBCS (test code = 0.00 K/UL 96802) CBC W/AUTO DIFF WITH PLATELETS [ADDED]2022-03-11 00:00:00 Test Item Value Reference Range Interpretation Comments WBC (test code = 1001) 7.6 K/UL RBC (test code = 1002) 4.13 M/UL HEMOGLOBIN (test code = 1003) 13.6 G/DL HEMATOCRIT (test code = 1004) 39.3 % MCV (test code = 1005) 95.2 fL MCH (test code = 1006) 32.9 PG MCHC (test code = 1007) 34.6 G/DL RDW (test code = 1038) 13.1 % NEUTROPHILS (test code = 1008) 53.9 % LYMPHOCYTES (test code = 1010) 34.7 % MONOCYTES (test code = 1011) 8.3 % EOSINOPHILS (test code = 1012) 1.7 % BASOPHILS (test code = 1013) 0.7 % IMMATURE GRANULOCYTES (test 0.7 % code = 1036) NUCLEATED RBCS (test code = 0.0 /100WBC'S 1065) PLATELET COUNT (test code = 250 K/UL 1015) ABSOLUTE NEUTROPHILS (test code 4.08 K/UL = 1066) ABSOLUTE LYMPHOCYTES (test code 2.62 K/UL = 1067) ABSOLUTE MONOCYTES (test code = 0.63 K/UL 1068) ABSOLUTE EOSINOPHILS (test code 0.13 K/UL = 1040) ABSOLUTE BASOPHILS (test code = 0.05 K/UL 1069) ABS IMMATURE GRANULOCYTES (test 0.05 K/UL code = 1020) ABS NUCLEATED RBCS (test code = 0.00 K/UL 28560) TSH + FREE T4 [id number] 06:43:57 Test Item Value Reference Range Interpretation Comments TSH, THIRD 1.200 UIU/ML 0.400-4.100 GENERATION (test code = 2821) FREE T4 (THYROXINE) 1.19 NG/DL 0.80-1.90 UNLESS OTHERWISE (test code = 2823) INDICATED , ALL TESTING PERFORMED [facility], [facility]. [address] [place] [id number] [place] [address] DIRECTOR: GODFREY ORTIZ M.D. CLIA NUMBER [id number] CAP ACCREDITATION N O. [id number] LIPID [id number] 06:41:48 Test Item Value Reference Range Interpretation Comments CHOLESTEROL (test 240 MG/DL <200 H code = 2210) TRIGLYCERIDES (test 360 MG/DL <150 H code = 2232) HDL CHOLESTEROL (test 57 MG/DL >39 code = 2220) CALC LDL CHOL (test 132 MG/DL <100 H NOTE: C ALCULATED LDL code = 2237) IS BASED ON AMALIA-SALCIDO METHOD WHICHINCLUDES ADJUSTABLE TRIGLYCERIDE:VL DL CHOLESTEROL RAT IO.THIS FACTOR VARIES B Y MEASURED TRIGLY CERIDE AND NON-HDLCHOL ESTEROL CONCENTRATIONS WITH INCREASED CALCU LATED LDL SEENIN HIGH ER TRIGLYCERIDE OR LOWER NON-HDL SPECIME NS. FOR MOREINFORMATION , SEE CLIENT ANNOUNCE MENT AT [email or web address] [email or web address] RATIO LDL/HDL 2.32 RATIO <3.22 (test code = 2238) COMPREHENSIVE METABOLIC [id number] 06:41:48 Test Item Value Reference Range Interpretation Comments GLUCOSE (test code = 103 MG/DL 70-99 H 2216) BUN (test code = 9 MG/DL 8-23 2207) CREATININE (test 0.72 MG/DL 0.60-1.30 code = 2214) eGFR (2020 CKD-EPI) 94 ML/MIN/1.73 >60 (test code = 07063) CALC BUN/CREAT (test 13 RATIO 6-28 code = 2235) SODIUM (test code = 142 MEQ/L 560-043 5999) POTASSIUM (test code 4.1 MEQ/L 3.5-5.4 = 2227) CHLORIDE (test code 104 MEQ/L 95-107 = 2215) CARBON DIOXIDE (test 23 MEQ/L 19-31 code = 2206) CALCIUM (test code = 9.1 MG/DL 8.5-10.5 2208) PROTEIN, TOTAL (test 7.2 G/DL 6.1-8.3 code = 2229) ALBUMIN (test code = 4.6 G/DL 3.5-5.2 2200) CALC GLOBULIN (test 2.6 G/DL 1.9-3.7 code = 2240) CALC A/G RATIO (test 1.8 RATIO 1.0-2.6 code = 2234) BILIRUBIN, TOTAL 0.3 MG/DL See_Comment [Automated message] (test code = 2206) The syste m which generated this result transmit patrick reference range : <=1.2. The refe rence range was not u sed to interpret th is result as normal/abnormal . ALKALINE PHOSPHATASE 86 U/L 40-140 (test code = 2203) AST (test code = 16 U/L 9-40 2217) ALT (test code = 15 U/L 5-40 2218) HEMOGLOBIN [id number] 06:36:28 Test Item Value Reference Range Interpretation Comments HEMOGLOBIN A1c (test code = 70794) 5.8 % 4.2-5.6 H CBC W/AUTO DIFF WITH [id number] 05:22:24 Test Item Value Reference Range Interpretation Comments WBC (test code = 7.6 K/UL 3.5-11.0 1001) RBC (test code = 4.43 M/UL 3.80-5.40 1002) HEMOGLOBIN (test code 13.7 G/DL 11.5-15.5 = 1003) HEMATOCRIT (test code 39.8 % 34.0-45.0 = 1004) MCV (test code = 89.8 fL 80.0-99.0 1005) MCH (test code = 30.9 PG 25.0-33.0 1006) MCHC (test code = 34.4 G/DL 31.0-36.0 1007) RDW (test code = 14.6 % 11.5-15.0 1038) NEUTROPHILS (test 49.3 % code = 1008) LYMPHOCYTES (test 40.2 % code = 1010) MONOCYTES (test code 7.4 % = 1011) EOSINOPHILS (test 2.0 % code = 1012) BASOPHILS (test code 0.8 % = 1013) IMMATURE GRANULOCYTES 0.3 % (test code = 1036) NUCLEATED RBCS (test 0.0 /100 WBC'S See_Comment [Aut omated code = 1065) message] The sy stem which generated this result transmitted reference range : 0.0. The refere nce range was not u sed to interpret th is result as normal/abnormal . PLATELET COUNT (test 272 K/UL 130-400 code = 1015) ABSOLUTE NEUTROPHILS 3.74 K/UL 1.50-7.50 (test code = 1066) ABSOLUTE LYMPHOCYTES 3.04 K/UL 1.00-4.00 (test code = 1067) ABSOLUTE MONOCYTES 0.56 K/UL 0.20-1.00 (test code = 1068) ABSOLUTE EOSINOPHILS 0.15 K/UL 0.00-0.50 (test code = 1040) ABSOLUTE BASOPHILS 0.06 K/UL 0.00-0.20 (test code = 1069) ABS IMMATURE 0.02 K/UL 0.00-0.10 GRANULOCYTES (test code = 1020) ABS NUCLEATED RBCS 0.00 K/UL 0.00-0.11 (test code = 19925) TSH + FREE T4 [id number] 00:00:00 Test Item Value Reference Range Interpretation Comments TSH, THIRD GENERATION (test code 1.200 UIU/ML = 2821) FREE T4 (THYROXINE) (test code = 1.19 NG/DL 2823) TSH + FREE T4 [id number] 00:00:00 Test Item Value Reference Range Interpretation Comments TSH, THIRD GENERATION (test code 1.200 UIU/ML = 2821) FREE T4 (THYROXINE) (test code = 1.19 NG/DL 2823) TSH + FREE T4 [id number] 00:00:00 Test Item Value Reference Range Interpretation Comments TSH, THIRD GENERATION (test code 1.200 UIU/ML = 2821) FREE T4 (THYROXINE) (test code = 1.19 NG/DL 2823) CBC W/AUTO [id number] 00:00:00 Test Item Value Reference Range Interpretation Comments WBC (test code = 1001) 7.6 K/UL RBC (test code = 1002) 4.43 M/UL HEMOGLOBIN (test code = 1003) 13.7 G/DL HEMATOCRIT (test code = 1004) 39.8 % MCV (test code = 1005) 89.8 fL MCH (test code = 1006) 30.9 PG MCHC (test code = 1007) 34.4 G/DL RDW (test code = 1038) 14.6 % NEUTROPHILS (test code = 1008) 49.3 % LYMPHOCYTES (test code = 1010) 40.2 % MONOCYTES (test code = 1011) 7.4 % EOSINOPHILS (test code = 1012) 2.0 % BASOPHILS (test code = 1013) 0.8 % IMMATURE GRANULOCYTES (test 0.3 % code = 1036) NUCLEATED RBCS (test code = 0.0 /100WBC'S 1065) PLATELET COUNT (test code = 272 K/UL 1015) ABSOLUTE NEUTROPHILS (test code 3.74 K/UL = 1066) ABSOLUTE LYMPHOCYTES (test code 3.04 K/UL = 1067) ABSOLUTE MONOCYTES (test code = 0.56 K/UL 1068) ABSOLUTE EOSINOPHILS (test code 0.15 K/UL = 1040) ABSOLUTE BASOPHILS (test code = 0.06 K/UL 1069) ABS IMMATURE GRANULOCYTES (test 0.02 K/UL code = 1020) ABS NUCLEATED RBCS (test code = 0.00 K/UL 36049) CBC W/AUTO [id number] 00:00:00 Test Item Value Reference Range Interpretation Comments WBC (test code = 1001) 7.6 K/UL RBC (test code = 1002) 4.43 M/UL HEMOGLOBIN (test code = 1003) 13.7 G/DL HEMATOCRIT (test code = 1004) 39.8 % MCV (test code = 1005) 89.8 fL MCH (test code = 1006) 30.9 PG MCHC (test code = 1007) 34.4 G/DL RDW (test code = 1038) 14.6 % NEUTROPHILS (test code = 1008) 49.3 % LYMPHOCYTES (test code = 1010) 40.2 % MONOCYTES (test code = 1011) 7.4 % EOSINOPHILS (test code = 1012) 2.0 % BASOPHILS (test code = 1013) 0.8 % IMMATURE GRANULOCYTES (test 0.3 % code = 1036) NUCLEATED RBCS (test code = 0.0 /100WBC'S 1065) PLATELET COUNT (test code = 272 K/UL 1015) ABSOLUTE NEUTROPHILS (test code 3.74 K/UL = 1066) ABSOLUTE LYMPHOCYTES (test code 3.04 K/UL = 1067) ABSOLUTE MONOCYTES (test code = 0.56 K/UL 1068) ABSOLUTE EOSINOPHILS (test code 0.15 K/UL = 1040) ABSOLUTE BASOPHILS (test code = 0.06 K/UL 1069) ABS IMMATURE GRANULOCYTES (test 0.02 K/UL code = 1020) ABS NUCLEATED RBCS (test code = 0.00 K/UL 94641) CBC W/AUTO [id number] 00:00:00 Test Item Value Reference Range Interpretation Comments WBC (test code = 1001) 7.6 K/UL RBC (test code = 1002) 4.43 M/UL HEMOGLOBIN (test code = 1003) 13.7 G/DL HEMATOCRIT (test code = 1004) 39.8 % MCV (test code = 1005) 89.8 fL MCH (test code = 1006) 30.9 PG MCHC (test code = 1007) 34.4 G/DL RDW (test code = 1038) 14.6 % NEUTROPHILS (test code = 1008) 49.3 % LYMPHOCYTES (test code = 1010) 40.2 % MONOCYTES (test code = 1011) 7.4 % EOSINOPHILS (test code = 1012) 2.0 % BASOPHILS (test code = 1013) 0.8 % IMMATURE GRANULOCYTES (test 0.3 % code = 1036) NUCLEATED RBCS (test code = 0.0 /100WBC'S 1065) PLATELET COUNT (test code = 272 K/UL 1015) ABSOLUTE NEUTROPHILS (test code 3.74 K/UL = 1066) ABSOLUTE LYMPHOCYTES (test code 3.04 K/UL = 1067) ABSOLUTE MONOCYTES (test code = 0.56 K/UL 1068) ABSOLUTE EOSINOPHILS (test code 0.15 K/UL = 1040) ABSOLUTE BASOPHILS (test code = 0.06 K/UL 1069) ABS IMMATURE GRANULOCYTES (test 0.02 K/UL code = 1020) ABS NUCLEATED RBCS (test code = 0.00 K/UL 75294) HEMOGLOBIN [id number] 00:00:00 Test Item Value Reference Range Interpretation Comments HEMOGLOBIN A1c (test code = 49770) 5.8 % HEMOGLOBIN [id number] 00:00:00 Test Item Value Reference Range Interpretation Comments HEMOGLOBIN A1c (test code = 94266) 5.8 % HEMOGLOBIN [id number] 00:00:00 Test Item Value Reference Range Interpretation Comments HEMOGLOBIN A1c (test code = 45980) 5.8 % LIPID [id number] 00:00:00 Test Item Value Reference Range Interpretation Comments CHOLESTEROL (test code = 2210) 240 MG/DL TRIGLYCERIDES (test code = 2232) 360 MG/DL HDL CHOLESTEROL (test code = 2220) 57 MG/DL CALC LDL CHOL (test code = 2237) 132 MG/DL RISK RATIO LDL/HDL (test code = 2.32 RATIO 2238) LIPID [id number] 00:00:00 Test Item Value Reference Range Interpretation Comments CHOLESTEROL (test code = 2210) 240 MG/DL TRIGLYCERIDES (test code = 2232) 360 MG/DL HDL CHOLESTEROL (test code = 2220) 57 MG/DL CALC LDL CHOL (test code = 2237) 132 MG/DL RISK RATIO LDL/HDL (test code = 2.32 RATIO 2238) COMPREHENSIVE METABOLIC [id number] 00:00:00 Test Item Value Reference Range Interpretation Comments GLUCOSE (test code = 2217) 103 MG/DL BUN (test code = 2208) 9 MG/DL CREATININE (test code = 2214) 0.72 MG/DL eGFR (2020 CKD-EPI) (test code 94 ML/MIN/1.73 = 89346) CALC BUN/CREAT (test code = 13 RATIO 2235) SODIUM (test code = 2231) 142 MEQ/L POTASSIUM (test code = 2228) 4.1 MEQ/L CHLORIDE (test code = 2215) 104 MEQ/L CARBON DIOXIDE (test code = 23 MEQ/L 2205) CALCIUM (test code = 2209) 9.1 MG/DL PROTEIN, TOTAL (test code = 7.2 G/DL 2228) ALBUMIN (test code = 2201) 4.6 G/DL CALC GLOBULIN (test code = 2.6 G/DL 2239) CALC A/G RATIO (test code = 1.8 RATIO 2234) BILIRUBIN, TOTAL (test code = 0.3 MG/DL 2206) ALKALINE PHOSPHATASE (test 86 U/L code = 2204) AST (test code = 2218) 16 U/L ALT (test code = 2219) 15 U/L COMPREHENSIVE METABOLIC [id number] 00:00:00 Test Item Value Reference Range Interpretation Comments GLUCOSE (test code = 2217) 103 MG/DL BUN (test code = 2208) 9 MG/DL CREATININE (test code = 2214) 0.72 MG/DL eGFR (2020 CKD-EPI) (test code 94 ML/MIN/1.73 = 97030) CALC BUN/CREAT (test code = 13 RATIO 5) SODIUM (test code = 2231) 142 MEQ/L POTASSIUM (test code = 2228) 4.1 MEQ/L CHLORIDE (test code = 2215) 104 MEQ/L CARBON DIOXIDE (test code = 23 MEQ/L 2205) CALCIUM (test code = 2209) 9.1 MG/DL PROTEIN, TOTAL (test code = 7.2 G/DL 2228) ALBUMIN (test code = 2201) 4.6 G/DL CALC GLOBULIN (test code = 2.6 G/DL 2239) CALC A/G RATIO (test code = 1.8 RATIO 2233) BILIRUBIN, TOTAL (test code = 0.3 MG/DL 2206) ALKALINE PHOSPHATASE (test 86 U/L code = 2204) AST (test code = 2218) 16 U/L ALT (test code = 2219) 15 U/L TSH + FREE T4 [id number] 00:00:00 Test Item Value Reference Range Interpretation Comments TSH, THIRD GENERATION (test code 1.200 UIU/ML = 2821) FREE T4 (THYROXINE) (test code = 1.19 NG/DL 2823) TSH + FREE T4 [id number] 00:00:00 Test Item Value Reference Range Interpretation Comments TSH, THIRD GENERATION (test code 1.200 UIU/ML = 2821) FREE T4 (THYROXINE) (test code = 1.19 NG/DL 2823) TSH + FREE T4 [id number] 00:00:00 Test Item Value Reference Range Interpretation Comments TSH, THIRD GENERATION (test code 1.200 UIU/ML = 2821) FREE T4 (THYROXINE) (test code = 1.19 NG/DL 2823) CBC W/AUTO [id number] 00:00:00 Test Item Value Reference Range Interpretation Comments WBC (test code = 1001) 7.6 K/UL RBC (test code = 1002) 4.43 M/UL HEMOGLOBIN (test code = 1003) 13.7 G/DL HEMATOCRIT (test code = 1004) 39.8 % MCV (test code = 1005) 89.8 fL MCH (test code = 1006) 30.9 PG MCHC (test code = 1007) 34.4 G/DL RDW (test code = 1038) 14.6 % NEUTROPHILS (test code = 1008) 49.3 % LYMPHOCYTES (test code = 1010) 40.2 % MONOCYTES (test code = 1011) 7.4 % EOSINOPHILS (test code = 1012) 2.0 % BASOPHILS (test code = 1013) 0.8 % IMMATURE GRANULOCYTES (test 0.3 % code = 1036) NUCLEATED RBCS (test code = 0.0 /100WBC'S 1065) PLATELET COUNT (test code = 272 K/UL 1015) ABSOLUTE NEUTROPHILS (test code 3.74 K/UL = 1066) ABSOLUTE LYMPHOCYTES (test code 3.04 K/UL = 1067) ABSOLUTE MONOCYTES (test code = 0.56 K/UL 1068) ABSOLUTE EOSINOPHILS (test code 0.15 K/UL = 1040) ABSOLUTE BASOPHILS (test code = 0.06 K/UL 1069) ABS IMMATURE GRANULOCYTES (test 0.02 K/UL code = 1020) ABS NUCLEATED RBCS (test code = 0.00 K/UL 48724) CBC W/AUTO [id number] 00:00:00 Test Item Value Reference Range Interpretation Comments WBC (test code = 1001) 7.6 K/UL RBC (test code = 1002) 4.43 M/UL HEMOGLOBIN (test code = 1003) 13.7 G/DL HEMATOCRIT (test code = 1004) 39.8 % MCV (test code = 1005) 89.8 fL MCH (test code = 1006) 30.9 PG MCHC (test code = 1007) 34.4 G/DL RDW (test code = 1038) 14.6 % NEUTROPHILS (test code = 1008) 49.3 % LYMPHOCYTES (test code = 1010) 40.2 % MONOCYTES (test code = 1011) 7.4 % EOSINOPHILS (test code = 1012) 2.0 % BASOPHILS (test code = 1013) 0.8 % IMMATURE GRANULOCYTES (test 0.3 % code = 1036) NUCLEATED RBCS (test code = 0.0 /100WBC'S 1065) PLATELET COUNT (test code = 272 K/UL 1015) ABSOLUTE NEUTROPHILS (test code 3.74 K/UL = 1066) ABSOLUTE LYMPHOCYTES (test code 3.04 K/UL = 1067) ABSOLUTE MONOCYTES (test code = 0.56 K/UL 1068) ABSOLUTE EOSINOPHILS (test code 0.15 K/UL = 1040) ABSOLUTE BASOPHILS (test code = 0.06 K/UL 1069) ABS IMMATURE GRANULOCYTES (test 0.02 K/UL code = 1020) ABS NUCLEATED RBCS (test code = 0.00 K/UL 14491) CBC W/AUTO [id number] 00:00:00 Test Item Value Reference Range Interpretation Comments WBC (test code = 1001) 7.6 K/UL RBC (test code = 1002) 4.43 M/UL HEMOGLOBIN (test code = 1003) 13.7 G/DL HEMATOCRIT (test code = 1004) 39.8 % MCV (test code = 1005) 89.8 fL MCH (test code = 1006) 30.9 PG MCHC (test code = 1007) 34.4 G/DL RDW (test code = 1038) 14.6 % NEUTROPHILS (test code = 1008) 49.3 % LYMPHOCYTES (test code = 1010) 40.2 % MONOCYTES (test code = 1011) 7.4 % EOSINOPHILS (test code = 1012) 2.0 % BASOPHILS (test code = 1013) 0.8 % IMMATURE GRANULOCYTES (test 0.3 % code = 1036) NUCLEATED RBCS (test code = 0.0 /100WBC'S 1065) PLATELET COUNT (test code = 272 K/UL 1015) ABSOLUTE NEUTROPHILS (test code 3.74 K/UL = 1066) ABSOLUTE LYMPHOCYTES (test code 3.04 K/UL = 1067) ABSOLUTE MONOCYTES (test code = 0.56 K/UL 1068) ABSOLUTE EOSINOPHILS (test code 0.15 K/UL = 1040) ABSOLUTE BASOPHILS (test code = 0.06 K/UL 1069) ABS IMMATURE GRANULOCYTES (test 0.02 K/UL code = 1020) ABS NUCLEATED RBCS (test code = 0.00 K/UL 54823) HEMOGLOBIN [id number] 00:00:00 Test Item Value Reference Range Interpretation Comments HEMOGLOBIN A1c (test code = 28166) 5.8 % HEMOGLOBIN [id number] 00:00:00 Test Item Value Reference Range Interpretation Comments HEMOGLOBIN A1c (test code = 39137) 5.8 % HEMOGLOBIN [id number] 00:00:00 Test Item Value Reference Range Interpretation Comments HEMOGLOBIN A1c (test code = 84748) 5.8 % LIPID [id number] 00:00:00 Test Item Value Reference Range Interpretation Comments CHOLESTEROL (test code = 2210) 240 MG/DL TRIGLYCERIDES (test code = 2232) 360 MG/DL HDL CHOLESTEROL (test code = 2220) 57 MG/DL CALC LDL CHOL (test code = 2237) 132 MG/DL RISK RATIO LDL/HDL (test code = 2.32 RATIO 2238) LIPID [id number] 00:00:00 Test Item Value Reference Range Interpretation Comments CHOLESTEROL (test code = 2210) 240 MG/DL TRIGLYCERIDES (test code = 2232) 360 MG/DL HDL CHOLESTEROL (test code = 2220) 57 MG/DL CALC LDL CHOL (test code = 2237) 132 MG/DL RISK RATIO LDL/HDL (test code = 2.32 RATIO 2238) COMPREHENSIVE METABOLIC [id number] 00:00:00 Test Item Value Reference Range Interpretation Comments GLUCOSE (test code = 2217) 103 MG/DL BUN (test code = 2208) 9 MG/DL CREATININE (test code = 2214) 0.72 MG/DL eGFR (2020 CKD-EPI) (test code 94 ML/MIN/1.73 = 68127) CALC BUN/CREAT (test code = 13 RATIO 2235) SODIUM (test code = 2231) 142 MEQ/L POTASSIUM (test code = 2228) 4.1 MEQ/L CHLORIDE (test code = 2215) 104 MEQ/L CARBON DIOXIDE (test code = 23 MEQ/L 2205) CALCIUM (test code = 2209) 9.1 MG/DL PROTEIN, TOTAL (test code = 7.2 G/DL 2228) ALBUMIN (test code = 2201) 4.6 G/DL CALC GLOBULIN (test code = 2.6 G/DL 0) CALC A/G RATIO (test code = 1.8 RATIO 2234) BILIRUBIN, TOTAL (test code = 0.3 MG/DL 2206) ALKALINE PHOSPHATASE (test 86 U/L code = 2204) AST (test code = 2218) 16 U/L ALT (test code = 2219) 15 U/L COMPREHENSIVE METABOLIC [id number] 00:00:00 Test Item Value Reference Range Interpretation Comments GLUCOSE (test code = 2217) 103 MG/DL BUN (test code = 2208) 9 MG/DL CREATININE (test code = 2214) 0.72 MG/DL eGFR (2020 CKD-EPI) (test code 94 ML/MIN/1.73 = 90256) CALC BUN/CREAT (test code = 13 RATIO 2235) SODIUM (test code = 2231) 142 MEQ/L POTASSIUM (test code = 2228) 4.1 MEQ/L CHLORIDE (test code = 2215) 104 MEQ/L CARBON DIOXIDE (test code = 23 MEQ/L 2205) CALCIUM (test code = 2209) 9.1 MG/DL PROTEIN, TOTAL (test code = 7.2 G/DL 2228) ALBUMIN (test code = 2201) 4.6 G/DL CALC GLOBULIN (test code = 2.6 G/DL 2239) CALC A/G RATIO (test code = 1.8 RATIO 2233) BILIRUBIN, TOTAL (test code = 0.3 MG/DL 2206) ALKALINE PHOSPHATASE (test 86 U/L code = 2204) AST (test code = 2218) 16 U/L ALT (test code = 2219) 15 U/L TSH + FREE T4 [id number] 00:00:00 Test Item Value Reference Range Interpretation Comments TSH, THIRD GENERATION (test code 1.200 UIU/ML = 2821) FREE T4 (THYROXINE) (test code = 1.19 NG/DL 2823) TSH + FREE T4 [id number] 00:00:00 Test Item Value Reference Range Interpretation Comments TSH, THIRD GENERATION (test code 1.200 UIU/ML = 2821) FREE T4 (THYROXINE) (test code = 1.19 NG/DL 2823) TSH + FREE T4 [id number] 00:00:00 Test Item Value Reference Range Interpretation Comments TSH, THIRD GENERATION (test code 1.200 UIU/ML = 2821) FREE T4 (THYROXINE) (test code = 1.19 NG/DL 2823) CBC W/AUTO [id number] 00:00:00 Test Item Value Reference Range Interpretation Comments WBC (test code = 1001) 7.6 K/UL RBC (test code = 1002) 4.43 M/UL HEMOGLOBIN (test code = 1003) 13.7 G/DL HEMATOCRIT (test code = 1004) 39.8 % MCV (test code = 1005) 89.8 fL MCH (test code = 1006) 30.9 PG MCHC (test code = 1007) 34.4 G/DL RDW (test code = 1038) 14.6 % NEUTROPHILS (test code = 1008) 49.3 % LYMPHOCYTES (test code = 1010) 40.2 % MONOCYTES (test code = 1011) 7.4 % EOSINOPHILS (test code = 1012) 2.0 % BASOPHILS (test code = 1013) 0.8 % IMMATURE GRANULOCYTES (test 0.3 % code = 1036) NUCLEATED RBCS (test code = 0.0 /100WBC'S 1065) PLATELET COUNT (test code = 272 K/UL 1015) ABSOLUTE NEUTROPHILS (test code 3.74 K/UL = 1066) ABSOLUTE LYMPHOCYTES (test code 3.04 K/UL = 1067) ABSOLUTE MONOCYTES (test code = 0.56 K/UL 1068) ABSOLUTE EOSINOPHILS (test code 0.15 K/UL = 1040) ABSOLUTE BASOPHILS (test code = 0.06 K/UL 1069) ABS IMMATURE GRANULOCYTES (test 0.02 K/UL code = 1020) ABS NUCLEATED RBCS (test code = 0.00 K/UL 85554) CBC W/AUTO [id number] 00:00:00 Test Item Value Reference Range Interpretation Comments WBC (test code = 1001) 7.6 K/UL RBC (test code = 1002) 4.43 M/UL HEMOGLOBIN (test code = 1003) 13.7 G/DL HEMATOCRIT (test code = 1004) 39.8 % MCV (test code = 1005) 89.8 fL MCH (test code = 1006) 30.9 PG MCHC (test code = 1007) 34.4 G/DL RDW (test code = 1038) 14.6 % NEUTROPHILS (test code = 1008) 49.3 % LYMPHOCYTES (test code = 1010) 40.2 % MONOCYTES (test code = 1011) 7.4 % EOSINOPHILS (test code = 1012) 2.0 % BASOPHILS (test code = 1013) 0.8 % IMMATURE GRANULOCYTES (test 0.3 % code = 1036) NUCLEATED RBCS (test code = 0.0 /100WBC'S 1065) PLATELET COUNT (test code = 272 K/UL 1015) ABSOLUTE NEUTROPHILS (test code 3.74 K/UL = 1066) ABSOLUTE LYMPHOCYTES (test code 3.04 K/UL = 1067) ABSOLUTE MONOCYTES (test code = 0.56 K/UL 1068) ABSOLUTE EOSINOPHILS (test code 0.15 K/UL = 1040) ABSOLUTE BASOPHILS (test code = 0.06 K/UL 1069) ABS IMMATURE GRANULOCYTES (test 0.02 K/UL code = 1020) ABS NUCLEATED RBCS (test code = 0.00 K/UL 83371) CBC W/AUTO [id number] 00:00:00 Test Item Value Reference Range Interpretation Comments WBC (test code = 1001) 7.6 K/UL RBC (test code = 1002) 4.43 M/UL HEMOGLOBIN (test code = 1003) 13.7 G/DL HEMATOCRIT (test code = 1004) 39.8 % MCV (test code = 1005) 89.8 fL MCH (test code = 1006) 30.9 PG MCHC (test code = 1007) 34.4 G/DL RDW (test code = 1038) 14.6 % NEUTROPHILS (test code = 1008) 49.3 % LYMPHOCYTES (test code = 1010) 40.2 % MONOCYTES (test code = 1011) 7.4 % EOSINOPHILS (test code = 1012) 2.0 % BASOPHILS (test code = 1013) 0.8 % IMMATURE GRANULOCYTES (test 0.3 % code = 1036) NUCLEATED RBCS (test code = 0.0 /100WBC'S 1065) PLATELET COUNT (test code = 272 K/UL 1015) ABSOLUTE NEUTROPHILS (test code 3.74 K/UL = 1066) ABSOLUTE LYMPHOCYTES (test code 3.04 K/UL = 1067) ABSOLUTE MONOCYTES (test code = 0.56 K/UL 1068) ABSOLUTE EOSINOPHILS (test code 0.15 K/UL = 1040) ABSOLUTE BASOPHILS (test code = 0.06 K/UL 1069) ABS IMMATURE GRANULOCYTES (test 0.02 K/UL code = 1020) ABS NUCLEATED RBCS (test code = 0.00 K/UL 12577) HEMOGLOBIN [id number] 00:00:00 Test Item Value Reference Range Interpretation Comments HEMOGLOBIN A1c (test code = 96397) 5.8 % HEMOGLOBIN [id number] 00:00:00 Test Item Value Reference Range Interpretation Comments HEMOGLOBIN A1c (test code = 82561) 5.8 % HEMOGLOBIN [id number] 00:00:00 Test Item Value Reference Range Interpretation Comments HEMOGLOBIN A1c (test code = 02945) 5.8 % LIPID [id number] 00:00:00 Test Item Value Reference Range Interpretation Comments CHOLESTEROL (test code = 2210) 240 MG/DL TRIGLYCERIDES (test code = 2232) 360 MG/DL HDL CHOLESTEROL (test code = 2220) 57 MG/DL CALC LDL CHOL (test code = 2237) 132 MG/DL RISK RATIO LDL/HDL (test code = 2.32 RATIO 2238) LIPID [id number] 00:00:00 Test Item Value Reference Range Interpretation Comments CHOLESTEROL (test code = 2210) 240 MG/DL TRIGLYCERIDES (test code = 2232) 360 MG/DL HDL CHOLESTEROL (test code = 2220) 57 MG/DL CALC LDL CHOL (test code = 2237) 132 MG/DL RISK RATIO LDL/HDL (test code = 2.32 RATIO 2238) COMPREHENSIVE METABOLIC [id number] 00:00:00 Test Item Value Reference Range Interpretation Comments GLUCOSE (test code = 2217) 103 MG/DL BUN (test code = 2208) 9 MG/DL CREATININE (test code = 2214) 0.72 MG/DL eGFR (2020 CKD-EPI) (test code 94 ML/MIN/1.73 = 31019) CALC BUN/CREAT (test code = 13 RATIO 2235) SODIUM (test code = 2231) 142 MEQ/L POTASSIUM (test code = 2228) 4.1 MEQ/L CHLORIDE (test code = 2215) 104 MEQ/L CARBON DIOXIDE (test code = 23 MEQ/L 2205) CALCIUM (test code = 2209) 9.1 MG/DL PROTEIN, TOTAL (test code = 7.2 G/DL 2228) ALBUMIN (test code = 220) 4.6 G/DL CALC GLOBULIN (test code = 2.6 G/DL 2239) CALC A/G RATIO (test code = 1.8 RATIO 2234) BILIRUBIN, TOTAL (test code = 0.3 MG/DL 2206) ALKALINE PHOSPHATASE (test 86 U/L code = 2204) AST (test code = 2218) 16 U/L ALT (test code = 2219) 15 U/L COMPREHENSIVE METABOLIC [id number] 00:00:00 Test Item Value Reference Range Interpretation Comments GLUCOSE (test code = 2217) 103 MG/DL BUN (test code = 2208) 9 MG/DL CREATININE (test code = 2214) 0.72 MG/DL eGFR (2020 CKD-EPI) (test code 94 ML/MIN/1.73 = 43593) CALC BUN/CREAT (test code = 13 RATIO 2235) SODIUM (test code = 2231) 142 MEQ/L POTASSIUM (test code = 2228) 4.1 MEQ/L CHLORIDE (test code = 2215) 104 MEQ/L CARBON DIOXIDE (test code = 23 MEQ/L 2205) CALCIUM (test code = 2209) 9.1 MG/DL PROTEIN, TOTAL (test code = 7.2 G/DL 2228) ALBUMIN (test code = 2201) 4.6 G/DL CALC GLOBULIN (test code = 2.6 G/DL 2239) CALC A/G RATIO (test code = 1.8 RATIO 2233) BILIRUBIN, TOTAL (test code = 0.3 MG/DL 2206) ALKALINE PHOSPHATASE (test 86 U/L code = 2204) AST (test code = 2218) 16 U/L ALT (test code = 2219) 15 U/L URIC [id number] 00:00:00 Test Item Value Reference Range Interpretation Comments URIC ACID (test code = 2233) 4.8 MG/DL COMPREHENSIVE METABOLIC [id number] 00:00:00 Test Item Value Reference Range Interpretation Comments GLUCOSE (test code = 2217) 103 MG/DL BUN (test code = 2208) 7 MG/DL CREATININE (test code = 2214) 0.58 MG/DL eGFR AMER. (test code 114 ML/MIN/1.73 = 40378) eGFR NON- AMER. (test 99 ML/MIN/1.73 code = 86346) CALC BUN/CREAT (test code = 12 RATIO 2235) SODIUM (test code = 2231) 145 MEQ/L POTASSIUM (test code = 2228) 4.8 MEQ/L CHLORIDE (test code = 2215) 105 MEQ/L CARBON DIOXIDE (test code = 26 MEQ/L 2205) CALCIUM (test code = 2209) 9.7 MG/DL PROTEIN, TOTAL (test code = 7.0 G/DL 2228) ALBUMIN (test code = 2201) 4.5 G/DL CALC GLOBULIN (test code = 2.5 G/DL 2240) CALC A/G RATIO (test code = 1.8 RATIO 2234) BILIRUBIN, TOTAL (test code = <0.2 MG/DL 2206) ALKALINE PHOSPHATASE (test 108 U/L code = 2204) AST (test code = 2218) 21 U/L ALT (test code = 2219) 21 U/L COMPREHENSIVE METABOLIC [id number] 00:00:00 Test Item Value Reference Range Interpretation Comments GLUCOSE (test code = 221) 103 MG/DL BUN (test code = 2208) 7 MG/DL CREATININE (test code = 2214) 0.58 MG/DL eGFR AMER. (test code 114 ML/MIN/1.73 = 23280) eGFR NON- AMER. (test 99 ML/MIN/1.73 code = 59222) CALC BUN/CREAT (test code = 12 RATIO 2235) SODIUM (test code = 2231) 145 MEQ/L POTASSIUM (test code = 2228) 4.8 MEQ/L CHLORIDE (test code = 2215) 105 MEQ/L CARBON DIOXIDE (test code = 26 MEQ/L 2205) CALCIUM (test code = 2209) 9.7 MG/DL PROTEIN, TOTAL (test code = 7.0 G/DL 2228) ALBUMIN (test code = 2201) 4.5 G/DL CALC GLOBULIN (test code = 2.5 G/DL 2240) CALC A/G RATIO (test code = 1.8 RATIO 2234) BILIRUBIN, TOTAL (test code = <0.2 MG/DL 2206) ALKALINE PHOSPHATASE (test 108 U/L code = 2204) AST (test code = 2218) 21 U/L ALT (test code = 2219) 21 U/L LIPID [id number] 00:00:00 Test Item Value Reference Range Interpretation Comments CHOLESTEROL (test code = 2210) 203 MG/DL TRIGLYCERIDES (test code = 2232) 76 MG/DL HDL CHOLESTEROL (test code = 2220) 39 MG/DL CALC LDL CHOL (test code = 2237) 146 MG/DL RISK RATIO LDL/HDL (test code = 3.74 RATIO 2238) LIPID [id number] 00:00:00 Test Item Value Reference Range Interpretation Comments CHOLESTEROL (test code = 2210) 203 MG/DL TRIGLYCERIDES (test code = 2232) 76 MG/DL HDL CHOLESTEROL (test code = 2220) 39 MG/DL CALC LDL CHOL (test code = 2237) 146 MG/DL RISK RATIO LDL/HDL (test code = 3.74 RATIO 2238) HEMOGLOBIN [id number] 00:00:00 Test Item Value Reference Range Interpretation Comments HEMOGLOBIN A1c (test code = 70345) 6.3 % HEMOGLOBIN [id number] 00:00:00 Test Item Value Reference Range Interpretation Comments HEMOGLOBIN A1c (test code = 22088) 6.3 % HEMOGLOBIN [id number] 00:00:00 Test Item Value Reference Range Interpretation Comments HEMOGLOBIN A1c (test code = 64682) 6.3 % URIC [id number] 00:00:00 Test Item Value Reference Range Interpretation Comments URIC ACID (test code = 2233) 4.8 MG/DL URIC [id number] 00:00:00 Test Item Value Reference Range Interpretation Comments URIC ACID (test code = 2233) 4.8 MG/DL COMPREHENSIVE METABOLIC [id number] 00:00:00 Test Item Value Reference Range Interpretation Comments GLUCOSE (test code = 2217) 103 MG/DL BUN (test code = 2208) 7 MG/DL CREATININE (test code = 2214) 0.58 MG/DL eGFR AMER. (test code 114 ML/MIN/1.73 = 04247) eGFR NON- AMER. (test 99 ML/MIN/1.73 code = 36052) CALC BUN/CREAT (test code = 12 RATIO 2235) SODIUM (test code = 2231) 145 MEQ/L POTASSIUM (test code = 2228) 4.8 MEQ/L CHLORIDE (test code = 2215) 105 MEQ/L CARBON DIOXIDE (test code = 26 MEQ/L 2205) CALCIUM (test code = 2209) 9.7 MG/DL PROTEIN, TOTAL (test code = 7.0 G/DL 2228) ALBUMIN (test code = 220) 4.5 G/DL CALC GLOBULIN (test code = 2.5 G/DL 2240) CALC A/G RATIO (test code = 1.8 RATIO 2234) BILIRUBIN, TOTAL (test code = <0.2 MG/DL 220) ALKALINE PHOSPHATASE (test 108 U/L code = 2204) AST (test code = 2218) 21 U/L ALT (test code = 2219) 21 U/L COMPREHENSIVE METABOLIC [id number] 00:00:00 Test Item Value Reference Range Interpretation Comments GLUCOSE (test code = 2217) 103 MG/DL BUN (test code = 2208) 7 MG/DL CREATININE (test code = 2214) 0.58 MG/DL eGFR AMER. (test code 114 ML/MIN/1.73 = 18398) eGFR NON- AMER. (test 99 ML/MIN/1.73 code = 80683) CALC BUN/CREAT (test code = 12 RATIO 2235) SODIUM (test code = 2231) 145 MEQ/L POTASSIUM (test code = 2228) 4.8 MEQ/L CHLORIDE (test code = 2215) 105 MEQ/L CARBON DIOXIDE (test code = 26 MEQ/L 2205) CALCIUM (test code = 2209) 9.7 MG/DL PROTEIN, TOTAL (test code = 7.0 G/DL 2228) ALBUMIN (test code = 2201) 4.5 G/DL CALC GLOBULIN (test code = 2.5 G/DL 2240) CALC A/G RATIO (test code = 1.8 RATIO 2234) BILIRUBIN, TOTAL (test code = <0.2 MG/DL 2206) ALKALINE PHOSPHATASE (test 108 U/L code = 2204) AST (test code = 2218) 21 U/L ALT (test code = 2219) 21 U/L LIPID [id number] 00:00:00 Test Item Value Reference Range Interpretation Comments CHOLESTEROL (test code = 2210) 203 MG/DL TRIGLYCERIDES (test code = 2232) 76 MG/DL HDL CHOLESTEROL (test code = 2220) 39 MG/DL CALC LDL CHOL (test code = 2237) 146 MG/DL RISK RATIO LDL/HDL (test code = 3.74 RATIO 2238) LIPID [id number] 00:00:00 Test Item Value Reference Range Interpretation Comments CHOLESTEROL (test code = 2210) 203 MG/DL TRIGLYCERIDES (test code = 2232) 76 MG/DL HDL CHOLESTEROL (test code = 2220) 39 MG/DL CALC LDL CHOL (test code = 2237) 146 MG/DL RISK RATIO LDL/HDL (test code = 3.74 RATIO 2238) HEMOGLOBIN [id number] 00:00:00 Test Item Value Reference Range Interpretation Comments HEMOGLOBIN A1c (test code = 62943) 6.3 % HEMOGLOBIN [id number] 00:00:00 Test Item Value Reference Range Interpretation Comments HEMOGLOBIN A1c (test code = 09153) 6.3 % HEMOGLOBIN [id number] 00:00:00 Test Item Value Reference Range Interpretation Comments HEMOGLOBIN A1c (test code = 40246) 6.3 % URIC [id number] 00:00:00 Test Item Value Reference Range Interpretation Comments URIC ACID (test code = 2233) 4.8 MG/DL URIC [id number] 00:00:00 Test Item Value Reference Range Interpretation Comments URIC ACID (test code = 2233) 4.8 MG/DL COMPREHENSIVE METABOLIC [id number] 00:00:00 Test Item Value Reference Range Interpretation Comments GLUCOSE (test code = 2217) 103 MG/DL BUN (test code = 2208) 7 MG/DL CREATININE (test code = 2214) 0.58 MG/DL eGFR AMER. (test code 114 ML/MIN/1.73 = 82736) eGFR NON- AMER. (test 99 ML/MIN/1.73 code = 53122) CALC BUN/CREAT (test code = 12 RATIO 2235) SODIUM (test code = 2231) 145 MEQ/L POTASSIUM (test code = 2228) 4.8 MEQ/L CHLORIDE (test code = 2215) 105 MEQ/L CARBON DIOXIDE (test code = 26 MEQ/L 2205) CALCIUM (test code = 2209) 9.7 MG/DL PROTEIN, TOTAL (test code = 7.0 G/DL 2228) ALBUMIN (test code = 2201) 4.5 G/DL CALC GLOBULIN (test code = 2.5 G/DL 2239) CALC A/G RATIO (test code = 1.8 RATIO 2234) BILIRUBIN, TOTAL (test code = <0.2 MG/DL 2206) ALKALINE PHOSPHATASE (test 108 U/L code = 2204) AST (test code = 2218) 21 U/L ALT (test code = 2219) 21 U/L COMPREHENSIVE METABOLIC [id number] 00:00:00 Test Item Value Reference Range Interpretation Comments GLUCOSE (test code = 2217) 103 MG/DL BUN (test code = 2208) 7 MG/DL CREATININE (test code = 2214) 0.58 MG/DL eGFR AMER. (test code 114 ML/MIN/1.73 = 20988) eGFR NON- AMER. (test 99 ML/MIN/1.73 code = 41909) CALC BUN/CREAT (test code = 12 RATIO 2235) SODIUM (test code = 2231) 145 MEQ/L POTASSIUM (test code = 2228) 4.8 MEQ/L CHLORIDE (test code = 2215) 105 MEQ/L CARBON DIOXIDE (test code = 26 MEQ/L 2205) CALCIUM (test code = 2209) 9.7 MG/DL PROTEIN, TOTAL (test code = 7.0 G/DL 2228) ALBUMIN (test code = 2201) 4.5 G/DL CALC GLOBULIN (test code = 2.5 G/DL 2239) CALC A/G RATIO (test code = 1.8 RATIO 2234) BILIRUBIN, TOTAL (test code = <0.2 MG/DL 2206) ALKALINE PHOSPHATASE (test 108 U/L code = 2204) AST (test code = 2218) 21 U/L ALT (test code = 2219) 21 U/L LIPID [id number] 00:00:00 Test Item Value Reference Range Interpretation Comments CHOLESTEROL (test code = 2210) 203 MG/DL TRIGLYCERIDES (test code = 2232) 76 MG/DL HDL CHOLESTEROL (test code = 2220) 39 MG/DL CALC LDL CHOL (test code = 2237) 146 MG/DL RISK RATIO LDL/HDL (test code = 3.74 RATIO 2238) LIPID [id number] 00:00:00 Test Item Value Reference Range Interpretation Comments CHOLESTEROL (test code = 2210) 203 MG/DL TRIGLYCERIDES (test code = 2232) 76 MG/DL HDL CHOLESTEROL (test code = 2220) 39 MG/DL CALC LDL CHOL (test code = 2237) 146 MG/DL RISK RATIO LDL/HDL (test code = 3.74 RATIO 2238) HEMOGLOBIN [id number] 00:00:00 Test Item Value Reference Range Interpretation Comments HEMOGLOBIN A1c (test code = 96742) 6.3 % HEMOGLOBIN [id number] 00:00:00 Test Item Value Reference Range Interpretation Comments HEMOGLOBIN A1c (test code = 20269) 6.3 % HEMOGLOBIN [id number] 00:00:00 Test Item Value Reference Range Interpretation Comments HEMOGLOBIN A1c (test code = 92918) 6.3 % URIC [id number] 00:00:00 Test Item Value Reference Range Interpretation Comments URIC ACID (test code = 2233) 4.8 MG/DL URIC [id number] 00:00:00 Test Item Value Reference Range Interpretation Comments URIC ACID (test code = 2233) 7.0 MG/DL URIC [id number] 00:00:00 Test Item Value Reference Range Interpretation Comments URIC ACID (test code = 2233) 7.0 MG/DL VITAMIN D, 25 [id number] 00:00:00 Test Item Value Reference Range Interpretation Comments VITAMIN D, 25 OH (test code = 4958) 35 NG/ML VITAMIN D, 25 [id number] 00:00:00 Test Item Value Reference Range Interpretation Comments VITAMIN D, 25 OH (test code = 4958) 35 NG/ML VITAMIN [id number] 00:00:00 Test Item Value Reference Range Interpretation Comments VITAMIN B-12 (test code = 2840) 684 PG/ML VITAMIN [id number] 00:00:00 Test Item Value Reference Range Interpretation Comments VITAMIN B-12 (test code = 2840) 684 PG/ML VITAMIN [id number] 00:00:00 Test Item Value Reference Range Interpretation Comments VITAMIN B-12 (test code = 2840) 684 PG/ML URIC [id number] 00:00:00 Test Item Value Reference Range Interpretation Comments URIC ACID (test code = 2233) 7.0 MG/DL URIC [id number] 00:00:00 Test Item Value Reference Range Interpretation Comments URIC ACID (test code = 2233) 7.0 MG/DL VITAMIN D, 25 [id number] 00:00:00 Test Item Value Reference Range Interpretation Comments VITAMIN D, 25 OH (test code = 4958) 35 NG/ML VITAMIN D, 25 [id number] 00:00:00 Test Item Value Reference Range Interpretation Comments VITAMIN D, 25 OH (test code = 4958) 35 NG/ML VITAMIN [id number] 00:00:00 Test Item Value Reference Range Interpretation Comments VITAMIN B-12 (test code = 2840) 684 PG/ML VITAMIN [id number] 00:00:00 Test Item Value Reference Range Interpretation Comments VITAMIN B-12 (test code = 2840) 684 PG/ML VITAMIN [id number] 00:00:00 Test Item Value Reference Range Interpretation Comments VITAMIN B-12 (test code = 2840) 684 PG/ML URIC [id number] 00:00:00 Test Item Value Reference Range Interpretation Comments URIC ACID (test code = 2233) 7.0 MG/DL URIC [id number] 00:00:00 Test Item Value Reference Range Interpretation Comments URIC ACID (test code = 2233) 7.0 MG/DL VITAMIN D, 25 [id number] 00:00:00 Test Item Value Reference Range Interpretation Comments VITAMIN D, 25 OH (test code = 4958) 35 NG/ML VITAMIN D, 25 [id number] 00:00:00 Test Item Value Reference Range Interpretation Comments VITAMIN D, 25 OH (test code = 4958) 35 NG/ML VITAMIN [id number] 00:00:00 Test Item Value Reference Range Interpretation Comments VITAMIN B-12 (test code = 2840) 684 PG/ML VITAMIN [id number] 00:00:00 Test Item Value Reference Range Interpretation Comments VITAMIN B-12 (test code = 2840) 684 PG/ML VITAMIN [id number] 00:00:00 Test Item Value Reference Range Interpretation Comments VITAMIN B-12 (test code = 2840) 684 PG/ML CBC W/AUTO [id number] 00:00:00 Test Item Value Reference Range Interpretation Comments WBC (test code = 1001) 5.9 K/UL RBC (test code = 1002) 4.24 M/UL HEMOGLOBIN (test code = 1003) 13.7 G/DL HEMATOCRIT (test code = 1004) 39.2 % MCV (test code = 1005) 92.5 fL MCH (test code = 1006) 32.3 PG MCHC (test code = 1007) 34.9 G/DL RDW (test code = 1038) 13.3 % NEUTROPHILS (test code = 1008) 48.0 % LYMPHOCYTES (test code = 1010) 41.1 % MONOCYTES (test code = 1011) 7.3 % EOSINOPHILS (test code = 1012) 2.7 % BASOPHILS (test code = 1013) 0.9 % PLATELET COUNT (test code = 1015) 197 K/UL CBC W/AUTO [id number] 00:00:00 Test Item Value Reference Range Interpretation Comments WBC (test code = 1001) 5.9 K/UL RBC (test code = 1002) 4.24 M/UL HEMOGLOBIN (test code = 1003) 13.7 G/DL HEMATOCRIT (test code = 1004) 39.2 % MCV (test code = 1005) 92.5 fL MCH (test code = 1006) 32.3 PG MCHC (test code = 1007) 34.9 G/DL RDW (test code = 1038) 13.3 % NEUTROPHILS (test code = 1008) 48.0 % LYMPHOCYTES (test code = 1010) 41.1 % MONOCYTES (test code = 1011) 7.3 % EOSINOPHILS (test code = 1012) 2.7 % BASOPHILS (test code = 1013) 0.9 % PLATELET COUNT (test code = 1015) 197 K/UL CBC W/AUTO [id number] 00:00:00 Test Item Value Reference Range Interpretation Comments WBC (test code = 1001) 5.9 K/UL RBC (test code = 1002) 4.24 M/UL HEMOGLOBIN (test code = 1003) 13.7 G/DL HEMATOCRIT (test code = 1004) 39.2 % MCV (test code = 1005) 92.5 fL MCH (test code = 1006) 32.3 PG MCHC (test code = 1007) 34.9 G/DL RDW (test code = 1038) 13.3 % NEUTROPHILS (test code = 1008) 48.0 % LYMPHOCYTES (test code = 1010) 41.1 % MONOCYTES (test code = 1011) 7.3 % EOSINOPHILS (test code = 1012) 2.7 % BASOPHILS (test code = 1013) 0.9 % PLATELET COUNT (test code = 1015) 197 K/UL HEMOGLOBIN [id number] 00:00:00 Test Item Value Reference Range Interpretation Comments HEMOGLOBIN A1c (test code = 56048) 5.8 % HEMOGLOBIN [id number] 00:00:00 Test Item Value Reference Range Interpretation Comments HEMOGLOBIN A1c (test code = 91403) 5.8 % HEMOGLOBIN [id number] 00:00:00 Test Item Value Reference Range Interpretation Comments HEMOGLOBIN A1c (test code = 92333) 5.8 % LIPID [id number] 00:00:00 Test Item Value Reference Range Interpretation Comments CHOLESTEROL (test code = 2210) 278 MG/DL TRIGLYCERIDES (test code = 2232) 650 MG/DL HDL CHOLESTEROL (test code = 50 MG/DL 2220) CALC LDL CHOL (test code = 2237) (NOTE) MG/DL RISK RATIO LDL/HDL (test code = (NOTE) RATIO 2238) LIPID [id number] 00:00:00 Test Item Value Reference Range Interpretation Comments CHOLESTEROL (test code = 2210) 278 MG/DL TRIGLYCERIDES (test code = 2232) 650 MG/DL HDL CHOLESTEROL (test code = 50 MG/DL 2220) CALC LDL CHOL (test code = 2237) (NOTE) MG/DL RISK RATIO LDL/HDL (test code = (NOTE) RATIO 2238) COMPREHENSIVE METABOLIC [id number] 00:00:00 Test Item Value Reference Range Interpretation Comments GLUCOSE (test code = 2217) 130 MG/DL BUN (test code = 2208) 9 MG/DL CREATININE (test code = 2214) 0.65 MG/DL eGFR AMER. (test code 110 ML/MIN/1.73 = 26073) eGFR NON- AMER. (test 95 ML/MIN/1.73 code = 99536) CALC BUN/CREAT (test code = 14 RATIO 2235) SODIUM (test code = 2231) 141 MEQ/L POTASSIUM (test code = 2228) 4.0 MEQ/L CHLORIDE (test code = 2215) 106 MEQ/L CARBON DIOXIDE (test code = 22 MEQ/L 2205) CALCIUM (test code = 2209) 9.2 MG/DL PROTEIN, TOTAL (test code = 7.2 G/DL 2228) ALBUMIN (test code = 2201) 4.5 G/DL CALC GLOBULIN (test code = 2.7 G/DL 2239) CALC A/G RATIO (test code = 1.7 RATIO 2234) BILIRUBIN, TOTAL (test code = 0.3 MG/DL 2206) ALKALINE PHOSPHATASE (test 73 U/L code = 2204) AST (test code = 2218) 29 U/L ALT (test code = 2219) 33 U/L COMPREHENSIVE METABOLIC [id number] 00:00:00 Test Item Value Reference Range Interpretation Comments GLUCOSE (test code = 2217) 130 MG/DL BUN (test code = 2208) 9 MG/DL CREATININE (test code = 2214) 0.65 MG/DL eGFR AMER. (test code 110 ML/MIN/1.73 = 00075) eGFR NON- AMER. (test 95 ML/MIN/1.73 code = 37523) CALC BUN/CREAT (test code = 14 RATIO 2235) SODIUM (test code = 2231) 141 MEQ/L POTASSIUM (test code = 2228) 4.0 MEQ/L CHLORIDE (test code = 2215) 106 MEQ/L CARBON DIOXIDE (test code = 22 MEQ/L 2205) CALCIUM (test code = 2209) 9.2 MG/DL PROTEIN, TOTAL (test code = 7.2 G/DL 2228) ALBUMIN (test code = 2201) 4.5 G/DL CALC GLOBULIN (test code = 2.7 G/DL 2240) CALC A/G RATIO (test code = 1.7 RATIO 2234) BILIRUBIN, TOTAL (test code = 0.3 MG/DL 2206) ALKALINE PHOSPHATASE (test 73 U/L code = 2204) AST (test code = 2218) 29 U/L ALT (test code = 2219) 33 U/L CBC W/AUTO [id number] 00:00:00 Test Item Value Reference Range Interpretation Comments WBC (test code = 1001) 5.9 K/UL RBC (test code = 1002) 4.24 M/UL HEMOGLOBIN (test code = 1003) 13.7 G/DL HEMATOCRIT (test code = 1004) 39.2 % MCV (test code = 1005) 92.5 fL MCH (test code = 1006) 32.3 PG MCHC (test code = 1007) 34.9 G/DL RDW (test code = 1038) 13.3 % NEUTROPHILS (test code = 1008) 48.0 % LYMPHOCYTES (test code = 1010) 41.1 % MONOCYTES (test code = 1011) 7.3 % EOSINOPHILS (test code = 1012) 2.7 % BASOPHILS (test code = 1013) 0.9 % PLATELET COUNT (test code = 1015) 197 K/UL CBC W/AUTO [id number] 00:00:00 Test Item Value Reference Range Interpretation Comments WBC (test code = 1001) 5.9 K/UL RBC (test code = 1002) 4.24 M/UL HEMOGLOBIN (test code = 1003) 13.7 G/DL HEMATOCRIT (test code = 1004) 39.2 % MCV (test code = 1005) 92.5 fL MCH (test code = 1006) 32.3 PG MCHC (test code = 1007) 34.9 G/DL RDW (test code = 1038) 13.3 % NEUTROPHILS (test code = 1008) 48.0 % LYMPHOCYTES (test code = 1010) 41.1 % MONOCYTES (test code = 1011) 7.3 % EOSINOPHILS (test code = 1012) 2.7 % BASOPHILS (test code = 1013) 0.9 % PLATELET COUNT (test code = 1015) 197 K/UL CBC W/AUTO [id number] 00:00:00 Test Item Value Reference Range Interpretation Comments WBC (test code = 1001) 5.9 K/UL RBC (test code = 1002) 4.24 M/UL HEMOGLOBIN (test code = 1003) 13.7 G/DL HEMATOCRIT (test code = 1004) 39.2 % MCV (test code = 1005) 92.5 fL MCH (test code = 1006) 32.3 PG MCHC (test code = 1007) 34.9 G/DL RDW (test code = 1038) 13.3 % NEUTROPHILS (test code = 1008) 48.0 % LYMPHOCYTES (test code = 1010) 41.1 % MONOCYTES (test code = 1011) 7.3 % EOSINOPHILS (test code = 1012) 2.7 % BASOPHILS (test code = 1013) 0.9 % PLATELET COUNT (test code = 1015) 197 K/UL HEMOGLOBIN [id number] 00:00:00 Test Item Value Reference Range Interpretation Comments HEMOGLOBIN A1c (test code = 99097) 5.8 % HEMOGLOBIN [id number] 00:00:00 Test Item Value Reference Range Interpretation Comments HEMOGLOBIN A1c (test code = 01226) 5.8 % HEMOGLOBIN [id number] 00:00:00 Test Item Value Reference Range Interpretation Comments HEMOGLOBIN A1c (test code = 18512) 5.8 % LIPID [id number] 00:00:00 Test Item Value Reference Range Interpretation Comments CHOLESTEROL (test code = 2210) 278 MG/DL TRIGLYCERIDES (test code = 2232) 650 MG/DL HDL CHOLESTEROL (test code = 50 MG/DL 2220) CALC LDL CHOL (test code = 2237) (NOTE) MG/DL RISK RATIO LDL/HDL (test code = (NOTE) RATIO 2238) LIPID [id number] 00:00:00 Test Item Value Reference Range Interpretation Comments CHOLESTEROL (test code = 2210) 278 MG/DL TRIGLYCERIDES (test code = 2232) 650 MG/DL HDL CHOLESTEROL (test code = 50 MG/DL 2220) CALC LDL CHOL (test code = 2237) (NOTE) MG/DL RISK RATIO LDL/HDL (test code = (NOTE) RATIO 2238) COMPREHENSIVE METABOLIC [id number] 00:00:00 Test Item Value Reference Range Interpretation Comments GLUCOSE (test code = 2217) 130 MG/DL BUN (test code = 2208) 9 MG/DL CREATININE (test code = 2214) 0.65 MG/DL eGFR AMER. (test code 110 ML/MIN/1.73 = 57731) eGFR NON- AMER. (test 95 ML/MIN/1.73 code = 52833) CALC BUN/CREAT (test code = 14 RATIO 2235) SODIUM (test code = 2231) 141 MEQ/L POTASSIUM (test code = 2228) 4.0 MEQ/L CHLORIDE (test code = 2215) 106 MEQ/L CARBON DIOXIDE (test code = 22 MEQ/L 2206) CALCIUM (test code = 2209) 9.2 MG/DL PROTEIN, TOTAL (test code = 7.2 G/DL 2228) ALBUMIN (test code = 2201) 4.5 G/DL CALC GLOBULIN (test code = 2.7 G/DL 0) CALC A/G RATIO (test code = 1.7 RATIO 2234) BILIRUBIN, TOTAL (test code = 0.3 MG/DL 2206) ALKALINE PHOSPHATASE (test 73 U/L code = 2204) AST (test code = 2218) 29 U/L ALT (test code = 2219) 33 U/L COMPREHENSIVE METABOLIC [id number] 00:00:00 Test Item Value Reference Range Interpretation Comments GLUCOSE (test code = 2217) 130 MG/DL BUN (test code = 2208) 9 MG/DL CREATININE (test code = 2214) 0.65 MG/DL eGFR AMER. (test code 110 ML/MIN/1.73 = 01283) eGFR NON- AMER. (test 95 ML/MIN/1.73 code = 05352) CALC BUN/CREAT (test code = 14 RATIO 2235) SODIUM (test code = 2231) 141 MEQ/L POTASSIUM (test code = 2228) 4.0 MEQ/L CHLORIDE (test code = 2215) 106 MEQ/L CARBON DIOXIDE (test code = 22 MEQ/L 2206) CALCIUM (test code = 2209) 9.2 MG/DL PROTEIN, TOTAL (test code = 7.2 G/DL 2229) ALBUMIN (test code = 2201) 4.5 G/DL CALC GLOBULIN (test code = 2.7 G/DL 2240) CALC A/G RATIO (test code = 1.7 RATIO 2234) BILIRUBIN, TOTAL (test code = 0.3 MG/DL 220) ALKALINE PHOSPHATASE (test 73 U/L code = 2204) AST (test code = 2218) 29 U/L ALT (test code = 2219) 33 U/L CBC W/AUTO [id number] 00:00:00 Test Item Value Reference Range Interpretation Comments WBC (test code = 1001) 5.9 K/UL RBC (test code = 1002) 4.24 M/UL HEMOGLOBIN (test code = 1003) 13.7 G/DL HEMATOCRIT (test code = 1004) 39.2 % MCV (test code = 1005) 92.5 fL MCH (test code = 1006) 32.3 PG MCHC (test code = 1007) 34.9 G/DL RDW (test code = 1038) 13.3 % NEUTROPHILS (test code = 1008) 48.0 % LYMPHOCYTES (test code = 1010) 41.1 % MONOCYTES (test code = 1011) 7.3 % EOSINOPHILS (test code = 1012) 2.7 % BASOPHILS (test code = 1013) 0.9 % PLATELET COUNT (test code = 1015) 197 K/UL CBC W/AUTO [id number] 00:00:00 Test Item Value Reference Range Interpretation Comments WBC (test code = 1001) 5.9 K/UL RBC (test code = 1002) 4.24 M/UL HEMOGLOBIN (test code = 1003) 13.7 G/DL HEMATOCRIT (test code = 1004) 39.2 % MCV (test code = 1005) 92.5 fL MCH (test code = 1006) 32.3 PG MCHC (test code = 1007) 34.9 G/DL RDW (test code = 1038) 13.3 % NEUTROPHILS (test code = 1008) 48.0 % LYMPHOCYTES (test code = 1010) 41.1 % MONOCYTES (test code = 1011) 7.3 % EOSINOPHILS (test code = 1012) 2.7 % BASOPHILS (test code = 1013) 0.9 % PLATELET COUNT (test code = 1015) 197 K/UL CBC W/AUTO [id number] 00:00:00 Test Item Value Reference Range Interpretation Comments WBC (test code = 1001) 5.9 K/UL RBC (test code = 1002) 4.24 M/UL HEMOGLOBIN (test code = 1003) 13.7 G/DL HEMATOCRIT (test code = 1004) 39.2 % MCV (test code = 1005) 92.5 fL MCH (test code = 1006) 32.3 PG MCHC (test code = 1007) 34.9 G/DL RDW (test code = 1038) 13.3 % NEUTROPHILS (test code = 1008) 48.0 % LYMPHOCYTES (test code = 1010) 41.1 % MONOCYTES (test code = 1011) 7.3 % EOSINOPHILS (test code = 1012) 2.7 % BASOPHILS (test code = 1013) 0.9 % PLATELET COUNT (test code = 1015) 197 K/UL HEMOGLOBIN [id number] 00:00:00 Test Item Value Reference Range Interpretation Comments HEMOGLOBIN A1c (test code = 49791) 5.8 % HEMOGLOBIN [id number] 00:00:00 Test Item Value Reference Range Interpretation Comments HEMOGLOBIN A1c (test code = 74920) 5.8 % HEMOGLOBIN [id number] 00:00:00 Test Item Value Reference Range Interpretation Comments HEMOGLOBIN A1c (test code = 34370) 5.8 % LIPID [id number] 00:00:00 Test Item Value Reference Range Interpretation Comments CHOLESTEROL (test code = 2210) 278 MG/DL TRIGLYCERIDES (test code = 2232) 650 MG/DL HDL CHOLESTEROL (test code = 50 MG/DL 2220) CALC LDL CHOL (test code = 2237) (NOTE) MG/DL RISK RATIO LDL/HDL (test code = (NOTE) RATIO 2238) LIPID [id number] 00:00:00 Test Item Value Reference Range Interpretation Comments CHOLESTEROL (test code = 2210) 278 MG/DL TRIGLYCERIDES (test code = 2232) 650 MG/DL HDL CHOLESTEROL (test code = 50 MG/DL 2220) CALC LDL CHOL (test code = 2237) (NOTE) MG/DL RISK RATIO LDL/HDL (test code = (NOTE) RATIO 2238) COMPREHENSIVE METABOLIC [id number] 00:00:00 Test Item Value Reference Range Interpretation Comments GLUCOSE (test code = 2217) 130 MG/DL BUN (test code = 2208) 9 MG/DL CREATININE (test code = 2214) 0.65 MG/DL eGFR AMER. (test code 110 ML/MIN/1.73 = 74008) eGFR NON- AMER. (test 95 ML/MIN/1.73 code = 48434) CALC BUN/CREAT (test code = 14 RATIO 2235) SODIUM (test code = 2231) 141 MEQ/L POTASSIUM (test code = 2228) 4.0 MEQ/L CHLORIDE (test code = 2215) 106 MEQ/L CARBON DIOXIDE (test code = 22 MEQ/L 2205) CALCIUM (test code = 2209) 9.2 MG/DL PROTEIN, TOTAL (test code = 7.2 G/DL 2228) ALBUMIN (test code = 2201) 4.5 G/DL CALC GLOBULIN (test code = 2.7 G/DL 2239) CALC A/G RATIO (test code = 1.7 RATIO 2234) BILIRUBIN, TOTAL (test code = 0.3 MG/DL 2206) ALKALINE PHOSPHATASE (test 73 U/L code = 2204) AST (test code = 2218) 29 U/L ALT (test code = 2219) 33 U/L COMPREHENSIVE METABOLIC [id number] 00:00:00 Test Item Value Reference Range Interpretation Comments GLUCOSE (test code = 2217) 130 MG/DL BUN (test code = 2208) 9 MG/DL CREATININE (test code = 2214) 0.65 MG/DL eGFR AMER. (test code 110 ML/MIN/1.73 = 88573) eGFR NON- AMER. (test 95 ML/MIN/1.73 code = 19393) CALC BUN/CREAT (test code = 14 RATIO 2235) SODIUM (test code = 2231) 141 MEQ/L POTASSIUM (test code = 2228) 4.0 MEQ/L CHLORIDE (test code = 2215) 106 MEQ/L CARBON DIOXIDE (test code = 22 MEQ/L 2205) CALCIUM (test code = 2209) 9.2 MG/DL PROTEIN, TOTAL (test code = 7.2 G/DL 2228) ALBUMIN (test code = 2201) 4.5 G/DL CALC GLOBULIN (test code = 2.7 G/DL 2239) CALC A/G RATIO (test code = 1.7 RATIO 2233) BILIRUBIN, TOTAL (test code = 0.3 MG/DL 2206) ALKALINE PHOSPHATASE (test 73 U/L code = 2204) AST (test code = 2218) 29 U/L ALT (test code = 2219) 33 U/L SARS-CoV-2 (COVID-19) by RT-PCR (HIGH RISK)2020-05-15 00:00:00 Test Item Value Reference Range Interpretation Comments SARS-CoV-2 INTERPRETATION (test NEGATIVE code = 90519) SOURCE (test code = 84013) NOT SPECIFIED SARS-CoV-2 (COVID-19) by RT-PCR (HIGH RISK)2020-05-15 00:00:00 Test Item Value Reference Range Interpretation Comments SARS-CoV-2 INTERPRETATION (test NEGATIVE code = 86439) SOURCE (test code = 23397) NOT SPECIFIED SARS-CoV-2 (COVID-19) by RT-PCR (HIGH RISK)2020-05-15 00:00:00 Test Item Value Reference Range Interpretation Comments SARS-CoV-2 INTERPRETATION (test NEGATIVE code = 32064) SOURCE (test code = 62173) NOT SPECIFIED SARS-CoV-2 (COVID-19) by RT-PCR (HIGH RISK)2020-05-15 00:00:00 Test Item Value Reference Range Interpretation Comments SARS-CoV-2 INTERPRETATION (test NEGATIVE code = 43379) SOURCE (test code = 72333) NOT SPECIFIED SARS-CoV-2 (COVID-19) by RT-PCR (HIGH RISK)2020-05-15 00:00:00 Test Item Value Reference Range Interpretation Comments SARS-CoV-2 INTERPRETATION (test NEGATIVE code = 98704) SOURCE (test code = 84371) NOT SPECIFIED SARS-CoV-2 (COVID-19) by RT-PCR (HIGH RISK)2020-05-15 00:00:00 Test Item Value Reference Range Interpretation Comments SARS-CoV-2 INTERPRETATION (test NEGATIVE code = 03823) SOURCE (test code = 81510) NOT SPECIFIED
[2022-04-14 12:51] LABS: Absolute Lymphocytes (CBC) 3.2 K/uL (0.7-4.9); Hematocrit 42.5 % (36.0-45.0); Lymphocytes % 37.2 % (15.3-44.8); MCV 96.8 fL (80-100); MPV 6.8 fL (7.6-11.3); RBC Red Blood Cell Count 4.39 M/uL (3.86-4.86)
[2022-04-14 13:09] LABS: Potassium 3.9 mmol/L (3.5-5.1); Troponin High Sensitivity 4.3 pg/mL (<58.9)
--- NOTE | 2022-04-14 13:19 | RAD REPORT ---
EXAM DESCRIPTION: RAD - Chest Single View - 04/14/2022 1:08 pm CLINICAL HISTORY: HTN COMPARISON: No comparisons FINDINGS: Lines: None. Lungs: No evidence of edema or pneumonia. Pleural: No significant pleural effusions or pneumothorax. Cardiac: The heart size is within normal limits. Mediastinum: Within normal limits. Bones: No acute fractures. Other: None IMPRESSION: No acute cardiopulmonary disease.
--- NOTE | 2022-04-14 13:40 | ER ---
Nurse's Notes [facility] Name: Angel Garcia Age: 62 yrs Sex: Female : 1960 Arrival Date: 04/14/2022 Time: 11:56 Bed 24 Private MD: Nick Elmore R Diagnosis: Essential (primary) hypertension Presentation: 04/14 12:04 Chief complaint: Patient states: a month ago i started taking losartan for HBP AND and jh5 now the last couple days the medicine isnt controlling ym BP so my doctor Dr. Orta told me to come to ER and checked out. Coronavirus screen: Vaccine status: Patient reports receiving the 2nd dose of the covid vaccine. Client denies travel out of the [place] in the last 14 days. Ebola Screen: Patient negative for fever greater than or equal to 101.5 degrees Fahrenheit, and additional compatible Ebola Virus Disease symptoms Patient denies exposure to infectious person. Patient denies travel to an Ebola-affected area in the 21 days before illness onset. Initial Sepsis Screen: Does the patient meet any 2 criteria? No. Patient's initial sepsis screen is negative. Does the patient have a suspected source of infection? No. Patient's initial sepsis screen is negative. Risk Assessment: Do you want to hurt yourself or someone else? Patient reports no desire to harm self or others. 12:04 Method Of Arrival: Ambulatory [facility] 12:04 Acuity: ALVINA 3 jh5 13:55 Onset of symptoms was April 14, 2022. 3 Triage Assessment: 12:06 General: Appears in no apparent distress. uncomfortable, slender, well groomed, well jh5 developed, Behavior is calm, cooperative, appropriate for age. Pain: Denies pain. Historical: - Allergies: 12:06 Codeine; jh5 12:06 Fentanyl; jh5 12:06 Plavix; jh5 12:06 SHELLFISH; jh5 - Immunization history:: Adult Immunizations up to date. - Social history:: Smoking status: Patient reports the use of cigarette tobacco products, smokes one-half pack cigarettes per day. Screenin:22 Abuse screen: Denies threats or abuse. Denies injuries from another. Nutritional eh3 screening: No deficits noted. Tuberculosis screening: No symptoms or risk factors identified. Fall Risk None identified. Assessment: 12:22 General: Appears in no apparent distress. comfortable, Behavior is calm, cooperative, eh3 appropriate for age. Pain: Denies pain. Neuro: Level of Consciousness is awake, alert, obeys commands, Oriented to person, place, time, situation. Cardiovascular: Capillary refill < 3 seconds JVD is absent Patient's skin is warm and dry. Respiratory: Airway is patent Respiratory effort is even, unlabored, Respiratory pattern is regular, symmetrical. GI: No signs and/or symptoms were reported involving the gastrointestinal system. Abdomen is round non-distended. : No signs and/or symptoms were reported regarding the genitourinary system. EENT: No signs and/or symptoms were reported regarding the EENT system. Derm: No signs and/or symptoms reported regarding the dermatologic system. Musculoskeletal: No signs and/or symptoms reported regarding the musculoskeletal system. 13:15 Reassessment: Patient and/or family updated on plan of care and expected duration. Pain eh3 level reassessed. Patient is alert, oriented x 3, equal unlabored respirations, skin warm/dry/pink. Vital Signs: 12:04 BP 167 / 76; Pulse 85; Resp 16; Temp 98.3; Pulse Ox 99% ; Weight 72.57 kg; Height 5 ft. jh5 7 in. (170.18 cm); Pain 0/10; 12:22 BP 143 / 71; Pulse 72; Resp 14; Pulse Ox 98% on R/A; eh3 13:15 BP 137 / 72; Pulse 72; Resp 13; Pulse Ox 98% on R/A; eh3 12:04 Body Mass Index 25.06 (72.57 kg, 170.18 cm) 5 Vitals: 12:22 Cardiac Rhythm Assessment Sinus rhythm. 3 ED Course: 11:56 Patient arrived in ED. rg4 11:56 Nick Elmore MD is Private Physician. rg4 11:58 Saima Boo PA is PHCP. en 11:58 Nader Canada MD is Attending Physician. en 12:06 Triage completed. jh5 12:06 Arm band placed on right wrist. 5 12:12 Yvette Sharif, KAITLIN is Primary Nurse. 3 12:22 Patient has correct armband on for positive identification. Bed in low position. Call eh3 light in reach. Side rails up X2. Client placed on continuous cardiac and pulse oximetry monitoring. NIBP monitoring applied. Door closed. Noise minimized. Warm blanket given. 12:38 Inserted saline lock: 20 gauge in right antecubital area, using aseptic technique. eh3 Blood collected. 12:42 Basic Metabolic Panel Sent. eh3 12:42 CBC with Diff Sent. eh3 12:42 Troponin HS Sent. eh3 13:10 XRAY Chest (1 view) In Process Unspecified. EDMS 13:40 Nick Elmore MD is Referral Physician. en 13:55 No provider procedures requiring assistance completed. eh3 13:56 IV discontinued, intact, bleeding controlled, No redness/swelling at site. Pressure eh3 dressing applied. Administered Medications: No medications were administered Medication: 13:55 VIS not applicable for this client. eh3 Outcome: 13:40 Discharge ordered by MD. en 13:56 Discharged to home ambulatory. eh3 13:56 Condition: stable 13:56 Discharge instructions given to patient, Instructed on discharge instructions, follow up and referral plans. Demonstrated understanding of instructions, follow-up care. 14:17 Patient left the ED. 3 Signatures: Dispatcher [employer] Zoey Torres 4 Cecelia Arellano RN RN 5 Yvette Sharif RN RN 3 Saima Boo PA PA en Corrections: (The following items were deleted from the chart) 12:06 12:06 Allergies: No Known Allergies; armando roberts
--- NOTE | 2022-04-14 13:40 | EDPHYS ---
Physician Documentation [facility] Name: Angel Garcia Age: 62 yrs Sex: Female : 1960 Arrival Date: 04/14/2022 Time: 11:56 Bed 24 Private MD: Nick Elmore R ED Physician Nader Canada HPI: 04/14 12:15 This 62 yrs old Female presents to ER via Ambulatory with complaints of High Blood en Pressure. 12:15 62-year-old female with history of hypertension and peripheral vascular disease en presents to the ED with elevated blood pressure readings at home yesterday 170s/70s. She reports associated lightheadedness and palpitations without chest pain, shortness of breath or dyspnea exertion. No numbness, tingling or weakness in extremities she denies headache, near syncope, vision changes. She had a recent adjustment in her losartan 6 weeks ago and her blood pressure had previously been well controlled until yesterday.. Historical: - Allergies: 12:06 Codeine; jh5 12:06 Fentanyl; jh5 12:06 Plavix; jh5 12:06 SHELLFISH; jh5 - Immunization history:: Adult Immunizations up to date. - Social history:: Smoking status: Patient reports the use of cigarette tobacco products, smokes one-half pack cigarettes per day. ROS: 12:15 Constitutional: Negative for fever, chills, and weight loss. en 12:15 Constitutional: Negative for body aches, fatigue, fever. 12:15 Eyes: Negative for blurry vision. 12:15 ENT: 12:15 Neck: Negative for stiffness, swelling. 12:15 Cardiovascular: Positive for palpitations, Negative for chest pain, edema, orthopnea, paroxysmal nocturnal dyspnea. 12:15 Respiratory: Negative for cough, dyspnea on exertion, hemoptysis, orthopnea, shortness of breath. 12:15 Abdomen/GI: Negative for abdominal pain, nausea and vomiting. 12:15 Neuro: Positive for Lightheadedness without dizziness or near syncope., Negative for headache, numbness, near syncope, tingling. 12:15 All other systems are negative. Exam: 12:15 Constitutional: This is a well developed, well nourished patient who is awake, alert, en and in no acute distress. 12:15 Constitutional: The patient appears in no acute distress, alert, awake. 12:15 Head/face: Exam is negative for acute changes. 12:15 Eyes: Periorbital structures: appear normal, Pupils: equal, round, and reactive to light and accomodation, Extraocular movements: intact throughout, Conjunctiva: normal, no exudate, no injection. 12:15 ENT: Posterior pharynx: Airway: patent. 12:15 Neck: Supple without JVD, no carotid bruits.. 12:15 Cardiovascular: Rate: normal, Rhythm: regular, Pulses: no pulse deficits are appreciated, Heart sounds: normal, no murmur, no rub, no gallop, Edema: is not appreciated. 12:15 Respiratory: the patient does not display signs of respiratory distress, Respirations: normal, Breath sounds: are clear throughout, no rales, rhonchi, no wheezing. 12:15 Abdomen/GI: Bowel sounds: normal, Palpation: abdomen is soft and non-tender, in all quadrants, soft. 12:15 Back: CVA tenderness, is absent. 12:15 Musculoskeletal/extremity: ROM: full active range of motion, Bounding DP and PT pulses in bilateral lower extremities. Calves supple.. 12:15 Skin: 12:15 Neuro: Orientation: is normal, appropriate for stated age, to person, place \T\ time. Mentation: appropriate for stated age, Cranial nerves: is grossly normal based on the patient's age, CN II- XII are normal as tested. 12:15 Psych: Exam negative for Vital Signs: 12:04 BP 167 / 76; Pulse 85; Resp 16; Temp 98.3; Pulse Ox 99% ; Weight 72.57 kg; Height 5 ft. 5 7 in. (170.18 cm); Pain 0/10; 12:22 BP 143 / 71; Pulse 72; Resp 14; Pulse Ox 98% on R/A; eh3 13:15 BP 137 / 72; Pulse 72; Resp 13; Pulse Ox 98% on R/A; eh3 12:04 Body Mass Index 25.06 (72.57 kg, 170.18 cm) [facility] MDM: 12:08 Patient medically screened. en 12:15 Differential diagnosis: hypertensive crisis, Malignant HTN, CVA, intracerebral en hemorrhage, Patient with normal exam and blood pressure mildly elevated 167/76. Have low suspicion for intracranial process. Will check troponin, EKG and chest x-ray to rule out volume overload, dysrhythmia, ACS. Data reviewed: vital signs, nurses notes, lab test result(s), EKG, radiologic studies, plain films. 13:38 Data reviewed: EKG, EKG normal sinus rhythm at 74 bpm. Normal axis normal intervals en isolated T wave inversion in V5 without reciprocal changes. No STEMI.. 13:38 ED course: Reviewed imaging and labs. Patient's blood pressure improved to 140s/ 70s. en No additional symptoms while in the ED. Discussed blood pressure log and close PCP follow-up for adjustments as needed. ER return precautions reviewed. 04/14 12:15 Order name: Basic Metabolic Panel; Complete Time: 13:37 en 04/14 12:15 Order name: CBC with Diff; Complete Time: 13:37 en 04/14 12:15 Order name: Troponin HS; Complete Time: 13:37 en 04/14 12:15 Order name: XRAY Chest (1 view); Complete Time: 13:37 en 04/14 12:15 Order name: EKG; Complete Time: 12:16 en 04/14 12:15 Order name: Cardiac monitoring; Complete Time: 12:29 en 04/14 12:15 Order name: EKG - Nurse/Tech; Complete Time: 12:29 en 04/14 12:15 Order name: IV Saline Lock; Complete Time: 12:42 en 04/14 12:15 Order name: Labs collected and sent; Complete Time: 12:42 en 04/14 12:15 Order name: O2 Per Protocol; Complete Time: 12:29 en 04/14 12:15 Order name: O2 Sat Monitoring; Complete Time: 12:30 en Administered Medications: No medications were administered Disposition: 15:52 Co-signature as Attending Physician, Nader Canada MD. rn Disposition Summary: 04/14/22 13:40 Discharge Ordered Location: Home en Problem: chronic en Symptoms: have improved en Condition: Stable en Diagnosis - Essential (primary) hypertension en Followup: en - With: Nick Elmore MD - When: 1 week - Reason: Re-evaluation by your physician Discharge Instructions: - Discharge Summary Sheet en - Hypertension, Adult en Forms: - Medication Reconciliation Form en - Thank You Letter en - Antibiotic Education en - Prescription Opioid Use en Signatures: Dispatcher [employer] EDMS [place], Nader, MD MD rn AdanCecelia RN RN jh5 Saima Boo PA PA en Corrections: (The following items were deleted from the chart) 12:06 12:06 Allergies: No Known Allergies; jh5 jh5
[2022-04-14 14:28] VITALS: TEMP 98.3
[2022-04-14 14:39] VITALS: O2SAT 98
[2022-04-14 14:44] VITALS: BP 137/72
--- NOTE | 2022-04-15 15:59 | EKG ---
Test Date: 2022-04-14 Test Time: 12:21:49 Glass Cutter Helper: ERNESTINA MEASUREMENT RESULTS: Intervals: Rate: 74 IL: 146 QRSD: 80 QT: 412 QTc: 457 [place]: P: 69 IL: 146 QRS: 37 T: 62 INTERPRETIVE STATEMENTS: Normal sinus rhythm Septal infarct, age undetermined Abnormal ECG No previous ECG available for comparison Electronically Signed On 04-15-22 15:58:00 CIDER MAKER by Gorge Arnold
== END 2022-04-14 14:17 | disposition home or self-care (01) ==
LOC: ER 11:53
DX: I10 Essential (primary) hypertension (principal); F17.210 Nicotine dependence, cigarettes, uncomplicated; Z88.6 Allergy status to analgesic agent; Z88.8 Allergy status to other drugs, medicaments and biological substances; Z91.013 Allergy to seafood
CPT/HCPCS: 36415; 71045; 80048; 84484; 85025; 93005; 99283